=== PATIENT | female | born 1950 | race Caucasian/White ===

== ENCOUNTER 2020-06-29 04:13 | Emergency (ER) | payer MEDICARE, OTHER, SELFPAY ==
[2020-06-29 04:20] VITALS: BP 181/79; PULSE 61; RESP 22; TEMP 37.3; O2SAT 100; BMI 27.7
--- NOTE | 2020-06-29 04:28 | DI.CT.S_ITS ---
PROCEDURE: CT ABDOMEN PELVIS W CON INDICATIONS: severe abdominal pain, nausea, vomiting TECHNIQUE: After the administration of intravenous contrast, 5 mm thick sections acquired from the diaphragm to the symphysis. 5 mm coronal and sagittal reformats were acquired. For radiation dose reduction, the following was used: automated exposure control, adjustment of mA and/or kV according to patient size. COMPARISON: None. FINDINGS: Image quality: Excellent. ABDOMEN: Lung bases: Lung bases are clear. Heart size is normal. Solid organs: Liver is normal in size and enhancement. Gallbladder is surgically absent. Biliary system is mildly dilated. Pancreas enhances normally. Spleen is normal in size and enhancement. There is a 1.2 cm left adrenal nodule. Kidneys demonstrate normal size and enhancement, without hydronephrosis. Peritoneum and bowel: There is postsurgical changes with gastric bypass. Proximal small bowel loops are filled with fluid, but demonstrates normal caliber. There are colonic diverticula. No CT findings to suggest active diverticulitis. No free fluid or air. Nodes and vessels: No retroperitoneal or mesenteric adenopathy by size criteria. Aorta and inferior vena cava are normal in size. Miscellaneous: No ventral hernias. PELVIS: Genitourinary: Bladder wall thickness is normal. Miscellaneous: No inguinal hernias or adenopathy. Bones: No suspicious bony lesions. No vertebral body compression fractures. Degenerative and postsurgical changes in lumbar spine. There is posterior disc extrusion at L2-L3 causing moderate central canal stenosis. There is severe narrowing of the left lateral recess. IMPRESSION: 1. Proximal small bowel loops are filled with fluid, but demonstrates normal caliber. This finding is nonspecific and may be secondary to enteritis. 2. Gastric bypass. 3. Diverticulosis without acute diverticulitis. 4. Mild intrahepatic and extrahepatic biliary dilation. This finding may be secondary to cholecystectomy. Please correlate with serum bilirubin for biliary obstruction. 5. A 1.2 cm left adrenal nodule. Recommend adrenal protocol CT or MRI for follow-up evaluation. 6. Degenerative and postsurgical changes in lumbar spine. There is posterior disc extrusion at L2-L3 causing moderate central canal stenosis and severe narrowing of the left lateral recess. 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 Dictated by: Arturo Petit M.D. on 06/29/2020 at 7:54 Approved by: Arturo Petit M.D. on 06/29/2020 at 11:36
[2020-06-29] MEDS: HYDROMORPHONE 0.5 MG INJ IV (04:40)
[2020-06-29] MEDS: ONDANSETRON 4 MG/2 ML INJ IV (04:40)
[2020-06-29] MEDS: SODIUM CHLORIDE 0.9% 1,000 ML 1000 ML IV (04:40)
[2020-06-29 04:50] LABS: Add Manual Diff / Slide Review NO; Basophils Absolute Auto 0 /uL (0-100); Basophils Percent Auto 0.4 % (0-2); Eosinophils Absolute Auto 0 /uL (0-450); Eosinophils Percent Auto 0.1 % (2-4); Hematocrit 38.6 % (36-46); Hemoglobin 12.9 g/dL (12.0-16.0); Lymphocytes Absolute Auto 600 /uL (1100-4500); Lymphocytes Percent Auto 10.7 % (25-40); Mean Corpuscular HGB Conc 33.3 % (30-36); Mean Corpuscular Hemoglobin 27.4 PG (26-34); Mean Corpuscular Volume 82.3 fL (80-100); Monocytes Absolute Auto 100 /uL (0-900); Monocytes Percent Auto 1.8 % (3-14); Neutrophils Absolute Auto 4900 /uL (1500-7000); Platelet Count 267 X10^3/uL (150-400); Red Blood Cell Count 4.69 X10^6/uL (4.0-5.2); Red Cell Distribution Width 13.9 % (11.6-14.8); White Blood Cell Count 5.7 X10^3/uL (4.5-11.0)
[2020-06-29 04:58] LABS: Lactate (Lactic Acid) 1.1 mmol/L (0.7-2.1)
[2020-06-29 04:59] LABS: Alanine Aminotransferase 11 IU/L (<35); Albumin 4.3 g/dL (3.5-5.0); Albumin Globulin Ratio 1.2 (1.0-2.8); Alkaline Phosphatase 107 U/L (38-126); Aspartate Aminotransferase 20 IU/L (14-36); BUN Creatinine Ratio 20.5 (6-22); Bilirubin Total 0.8 mg/dL (0.2-1.3); Blood Urea Nitrogen 15 mg/dL (7-17); Calcium 9.3 mg/dL (8.4-10.2); Carbon Dioxide 23 mmol/L (22-32); Chloride 103 mmol/L (98-107); Estimated Glomerular Filt Rate > 60.0 mL/min (>60); Globulin 3.6 g/dL (1.7-4.1); Glucose 151 mg/dL (80-110); HEMOLYSIS < 15 (0-50); Potassium 3.7 mmol/L (3.4-5.1); Sodium 137 mmol/L (137-145); Total Protein 7.9 g/dL (6.3-8.2)
--- NOTE | 2020-06-29 06:08 | ED_ITS ---
HPI - Nausea/Vomiting/Diarrhea General Chief complaint: Nausea/Vomiting/Diarrhea Stated complaint: vomiting since yesterday Time Seen by Provider: 06/29/20 04:27 Source: patient and family Mode of arrival: Family Vehicle Limitations: no limitations History of Present Illness HPI Narrative: 69F nonsmoker presents with with the chief complaint of severe abdominal pain with a tremendous number of episodes of N/V over the day. She's had no fever. She states her pain is worse with motion and improves with rest. It is persistent. She denies any history of the same. She denies any fever or chills. She denies eating any obvious bad food. She denies any recent antibiotic use. She did have a bowel movement earlier without significant difficulty. She had a gastric bypass many years ago and has also had her gallb ladder out and a hysterectomy. MD complaint: nausea, vomiting and abdominal pain Onset (ago): hour(s) Description of Vomiting: food contents and bilious Description of Diarrhea: none Associated Abdominal Pain: Yes Location of pain: diffuse Severity: moderate Relieving factors: none Exacerbating factors: none Related Data Previous Rx's Medication Instructions Recorded hydrocodone-acetaminophen 1 tab PO Q4-6H PRN #10 tab 06/29/20 hyoscyamine sulfate 0.125 mg PO BID-QID PRN #20 tab 06/29/20 ondansetron 4 mg PO TID-QID PRN #10 tab 06/29/20 Allergies Allergy/AdvReac Type Severity Reaction Status Date / Time Penicillins Allergy Hives Verified 06/29/20 04:43 Review of Systems Constitutional Constitutional: Denies chills, Denies fatigue, Denies fever(s), Denies frequent falls, Denies lethargy and Denies weakness Eyes Eyes: Denies change in vision, Denies eye discharge, Denies irritation and Denies loss of vision ENT Ears, Nose, Mouth, and Throat: Denies change in voice, Denies dizziness, Denies neck pain, Denies sore throat and Denies throat swelling Cardiovascular Cardiovascular: Denies chest pain, Denies irregular heart rhythm, Denies lightheadedness, Denies palpitations, Denies dyspnea, Denies dyspnea on exertion and Denies orthopnea Respiratory Respiratory: Denies cough, Denies dyspnea, Denies dyspnea on exertion and Denies wheezing Gastrointestinal Gastrointestinal: Reports abdominal pain, Denies change in bowel habits, Denies diarrhea, Reports nausea and Reports vomiting Musculoskeletal Musculoskeletal: Denies neck pain and Denies numbness Integumentary/Breasts Skin/Breast: Denies pruritus, Denies erythema, Denies rash and Denies wounds Neurologic Neurologic: Denies behavioral changes, Denies confusion, Denies dizziness, Denies frequent falls, Denies loss of vision, Denies numbness and Denies weakness Psychiatric Psychiatric: Denies anxiety, Denies behavioral changes, Denies confusion, Denies depression, Denies homicidal ideation and Denies suicidal ideation Endocrine Endocrine: Denies fatigue, Denies flushing and Denies palpitations Hematologic/Lymphatic Hematologic/Lymphatic: Denies easy bruising Allergic/Immunologic Allergic/Immunologic: Denies urticaria, Denies throat swelling and Denies wheezing Patient History Social History Smoking Status: Never smoker Smoking Status: Never smoker Substance Use Type: does not use Exam Narrative Exam Narrative: GENERAL: [69] year old patient appears stated age. Well-nourish ed, well-developed patient, in mild distress. HEAD: Atraumatic. Normocephalic. EYES: Pupils equal round and reactive. Extraocular motions intact. No scleral icterus. No injection or drainage. ENT: Nose without bleeding, purulent drainage. Throat without erythema, tonsillar hypertrophy or exudate. Airway patent. NECK: Trachea midline. Non tender CARDIOVASCULAR: Regular rate and rhythm without murmurs, gallops, or rubs. RESPIRATORY: Clear to auscultation. Breath sounds equal bilaterally. No wheezes, rales, or rhonchi. GASTROINTESTINAL: Abdomen soft, generalized tenderness, nondistended. Bowel sounds in all quadrants EXTREMITIES: No edema or joint tenderness. BACK: Nontender without deformity or crepitance. No flank tenderness. NEURO: AOx3. SKIN: No rash or erythema of visible areas Initial Vital Signs Initial Vital Signs: Vital Signs Temperature 99.1 F 06/29/20 04:20 Pulse Rate 61 06/29/20 04:20 Respiratory Rate 22 06/29/20 04:20 Blood Pressure 181/79 H 06/29/20 04:20 Pulse Oximetry 100 06/29/20 04:20 Course Orders Ordered: ED Orders 06/29/20 04:28 CT abdomen pelvis w con Stat 06/29/20 04:30 Complete Blood Count AUTO DIFF Stat Comprehensive Metabolic Panel Stat Lactate (Lactic Acid) Stat Ondansetron HCl (Zofran) 4 mg IV Q4HR PRN PRN Reason: Nausea And Vomiting Last Admin: 06/29/20 04:40 Dose: 4 mg Documented by: JAJA Discontinued Medications Hydrocodone Bitart/Acetaminophen (Vicodin 5/325 Prepack) 1 bottle MISC SEEINSTR ONE Stop: 06/29/20 06:20 Last Admin: 06/29/20 06:48 Dose: 1 bottle Documented by: JAJA Hydromorphone HCl (Dilaudid) 0.5 mg IV NOW ONE Stop: 06/29/20 04:29 Last Admin: 06/29/20 04:40 Dose: 0.5 mg Documented by: JAJA Sodium Chloride (Normal Saline 0.9%) 1,000 mls @ 1,000 mls/hr IV BOLUS ONE Stop: 06/29/20 05:27 Last Infusion: 06/29/20 06:04 Dose: 0 mls/hr Documented by: Admin: 06/29/20 04:40 Dose: 1,000 mls/hr Documented by: JAJA Metoclopramide HCl (Reglan) 10 mg IV NOW ONE Stop: 06/29/20 06:03 Last Admin: 06/29/20 06:12 Dose: 10 mg Documented by: JAJA Ondansetron HCl (Zofran Odt Prepack) 1 bottle MISC SEEINSTR ONE Stop: 06/29/20 06:20 Last Admin: 06/29/20 06:48 Dose: 1 bottle Documented by: JAJA Vital Signs Vital signs: Vital Signs - 8 hr 06/29/20 04:20 Temperature 99.1 F Pulse Rate 61 Respiratory Rate 22 Blood Pressure 181/79 H Pulse Oximetry 100 MDM - Nausea/Vomiting/Diarrhea Lab Data Result diagrams: 06/29/20 04:30 06/29/20 04:30 Labs: Lab Results 06/29/20 06/29/20 06/29/20 Range/Units 04:30 04:30 04:30 WBC 5.7 (4.5-11.0) X10^3/uL RBC 4.69 (4.0-5.2) X10^6/uL Hgb 12.9 (12.0-16.0) g/dL Hct 38.6 (36-46) % MCV 82.3 (80-100) fL MCH 27.4 (26-34) PG MCHC 33.3 (30-36) % RDW 13.9 (11.6-14.8) % Plt Count 267 (150-400) X10^3/uL Neut % (Auto) 87.0 H (50-75) % Lymph % (Auto) 10.7 L (25-40) % Bleckley % (Auto) 1.8 L (3-14) % Eos % (Auto) 0.1 L (2-4) % Baso % (Auto) 0.4 (0-2) % Neut # (Auto) 4900 (1795-4332) /uL Lymph # (Auto) 600 L (0118-4323) /uL [place]ck[place] # (Auto) 100 (0-900) /uL Eos # (Auto) 0 (0-450) /uL Baso # (Auto) 0 (0-100) /uL Sodium 137 (137-145) mmol/L Potassium 3.7 (3.4-5.1) mmol/L Chloride 103 (98-107) mmol/L Carbon Dioxide 23 (22-32) mmol/L BUN 15 (7-17) mg/dL Creatinine 0.73 (0.52-1.04) mg/dL Estimated GFR > 60.0 (>60) mL/min BUN/Creatinine Ratio 20.5 (6-22) Glucose 151 H (80-110) mg/dL Lactate 1.1 (0.7-2.1) mmol/L Calcium 9.3 (8.4-10.2) mg/dL Total Bilirubin 0.8 (0.2-1.3) mg/dL AST 20 (14-36) IU/L ALT 11 (<35) IU/L Alkaline Phosphatase 107 (38-126) U/L Total Protein 7.9 (6.3-8.2) g/dL Albumin 4.3 (3.5-5.0) g/dL Globulin 3.6 (1.7-4.1) g/dL Albumin/Globulin Ratio 1.2 (1.0-2.8) Imaging Data CT scan - abdomen/pelvis: Radiologist's Impression: No complications with gastric bypass Possible enteritis Discharge Plan Departure Patient Disposition: Home Clinical Impression: Enteritis Instructions: DI for Enteritis Activity Restrictions/Additional Instructions: 1. Drink plenty of fluids with frequent small sips. 2. For the next 24 hours a clear liquid diet is advised. After that please employ a brat diet which would include bananas, rice, apples, toast. 3. Please take medications as directed. 4. Please follow-up with your doctor in the next 1-2 days. Call the office for an appointment. 5. Please return to the emergency Department for any worsening or persistent symptoms, such as increasing pain or fever. Prescriptions: New hydrocodone-acetaminophen 5-325 mg tablet 1 tab PO Q4-6H PRN (Reason: pain) Qty: 10 RF: 0 hyoscyamine sulfate 0.125 mg tablet 0.125 mg PO BID-QID PRN (Reason: dyspepsia) Qty: 20 RF: 0 ondansetron 4 mg tablet,disintegrating 4 mg PO TID-QID PRN (Reason: nausea and vomiting) Qty: 10 RF: 0
[2020-06-29] MEDS: METOCLOPRAMIDE 10 MG/2 ML INJ IV (06:12)
[2020-06-29] MEDS: ONDANSETRON 4 MG ODT PREPACK 1 BOTTLE MISC (06:48)
[2020-06-29] MEDS: HYDROCODONE/ACET 5/325 PREPACK 1 BOTTLE MISC (06:48)
[2020-06-29 06:54] VITALS: BP 141/65; PULSE 55; RESP 16; O2SAT 94
== END 2020-06-29 06:54 | disposition home or self-care (01) ==
PROVIDERS: Emergency Provider Emergency Medicine
DX: K52.9 Noninfective gastroenteritis and colitis, unspecified (principal); R11.2 Nausea with vomiting, unspecified
CPT/HCPCS: 36415; 74177; 80053; 83605; 85025; 96361; 96374; 96375; 99284; J1170; J2405; J2765; Q9967

== ENCOUNTER 2021-03-07 11:08 | Emergency (ER) | payer MEDICARE, OTHER, SELFPAY ==
[2021-03-07] VITALS (14 sets, daily range): BP systolic 150–177; BP diastolic 69–81; PULSE 71–105; RESP 16–30; TEMP 37.1; O2SAT 86–100; BMI 24.2
--- NOTE | 2021-03-07 11:22 | DI.RAD.S_ITS ---
PROCEDURE: XR CHEST 1V INDICATIONS: chest pain TECHNIQUE: One view of the chest was acquired. COMPARISON: None. FINDINGS: Surgical changes and devices: None. Lungs and pleura: Lungs are clear. No pleural effusions or pneumothorax. Mediastinum: Mediastinal contours appear normal. Heart size is normal. Bones and chest wall: No suspicious bony lesions. Overlying soft tissues appear unremarkable. IMPRESSION: No acute cardiopulmonary disease process. Dictated by: Ernestine Roberts MD, PhD on 03/07/2021 at 11:35 Approved by: Ernestine Roberts MD, PhD on 03/07/2021 at 11:36
[2021-03-07 11:28] LABS: Add Manual Diff / Slide Review NO; Basophils Absolute Auto 0 /uL (0-100); Basophils Percent Auto 0.8 % (0-2); Eosinophils Absolute Auto 200 /uL (0-450); Eosinophils Percent Auto 3.8 % (2-4); Hematocrit 36.5 % (36-46); Hemoglobin 12.2 g/dL (12.0-16.0); Lymphocytes Absolute Auto 1400 /uL (1100-4500); Lymphocytes Percent Auto 25.5 % (25-40); Mean Corpuscular HGB Conc 33.4 % (30-36); Mean Corpuscular Hemoglobin 28.3 PG (26-34); Mean Corpuscular Volume 84.6 fL (80-100); Monocytes Absolute Auto 300 /uL (0-900); Monocytes Percent Auto 6.2 % (3-14); Neutrophils Absolute Auto 3600 /uL (1500-7000); Neutrophils Percent Auto 63.7 % (50-75); Platelet Count 234 X10^3/uL (150-400); Red Blood Cell Count 4.32 X10^6/uL (4.0-5.2); Red Cell Distribution Width 13.2 % (11.6-14.8); White Blood Cell Count 5.6 X10^3/uL (4.5-11.0)
[2021-03-07 11:34] LABS: Prothrombin Time 10.9 SECONDS (10.1-12.7)
[2021-03-07 11:37] LABS: PTT Partial Thromboplastin Tim 42 SECONDS (26.4-36.2)
[2021-03-07 11:39] LABS: Alanine Aminotransferase 13 IU/L (<35); Albumin 4.4 g/dL (3.5-5.0); Albumin Globulin Ratio 1.3 (1.0-2.8); Alkaline Phosphatase 118 U/L (38-126); Aspartate Aminotransferase 25 IU/L (14-36); BUN Creatinine Ratio 15.3 (6-22); Bilirubin Total 0.6 mg/dL (0.2-1.3); Blood Urea Nitrogen 13 mg/dL (7-17); Calcium 9.3 mg/dL (8.4-10.2); Carbon Dioxide 23 mmol/L (22-32); Chloride 106 mmol/L (98-107); Creatine Kinase 52 U/L (30-135); Estimated Glomerular Filt Rate > 60.0 mL/min (>60); Globulin 3.4 g/dL (1.7-4.1); Glucose 119 mg/dL (80-110); HEMOLYSIS < 15 (0-50); Lipase 42 U/L (23-300); Potassium 3.1 mmol/L (3.4-5.1); Sodium 139 mmol/L (137-145); Total Protein 7.8 g/dL (6.3-8.2)
[2021-03-07 11:51] LABS: Troponin I < 0.012 ng/mL (0.01-0.034)
--- NOTE | 2021-03-07 13:54 | ED.CHESTPAIN ---
HPI - Chest Pain General Chief Complaint: Chest Pain Stated Complaint: chest pain Time Seen by Provider: 03/07/21 13:54 Source: patient Mode of arrival: Ambulatory Limitations: no limitations History of Present Illness HPI narrative: This is a 70-year-old female comes emergency department with complaint of chest pain and fast heartbeat. Patient states she develops chest pain when she is stressed and she begins having a fast heartbeat. She describes it is typically 75-80 beats per minute but sometimes up to 115. She states her normal heart rates in the 60s. She noticed issues after she had COVID 8 months ago. She states she was not hospitalized at that time. She and her physician were planning to have her follow up with Cardiology and to have what sounds like either a Holter monitor or ZIO patch. Patient states that she has been having symptoms on off for the past 6 months she states her blood pressure is often elevated at x2. She states that she came is a in today because she had several days of left-sided chest pressure with no resolution. It has never resolved. She has felt a little lightheaded, she had a mild headache. She denies any diaphoresis. She feels a little short of breath with her heart rate is fast. She has had some mild swelling in her lower extremities, she states that her right lower extremity has been chronically swollen for many years. She has also had some urinary symptoms with frequency and dysuria. She denies any GI symptoms. She takes benazepril, Norvasc, clonidine, naproxen daily, Suboxone daily. She does not take her aspirin daily and no longer takes her atorvastatin. She has a history spinal fusion. And her primary care is Dr. Romeo. Related Data Home Medications Medication Instructions Recorded Confirmed amlodipine 03/07/21 amlodipine [Norvasc] 03/07/21 clonidine 03/07/21 Previous Rx's Medication Instructions Recorded furosemide [Lasix] 20 mg PO DAILY #5 tab 03/07/21 nitrofurantoin macrocrystal 100 mg PO BID #14 cap 03/07/21 [Macrodantin] Allergies Allergy/AdvReac Type Severity Reaction Status Date / Time Penicillins Allergy Hives Verified 06/29/20 04:43 Review of Systems Review of Systems ROS Unobtainable: All systems reviewed & are unremarkable except as noted in HPI and below Patient History Social History Smoking Status: Never smoker Smoking Status: Never smoker Substance Use Type: does not use Exam Narrative Exam Narrative: GENERAL: Alert and oriented x three, well-nourished female in mild distress. HEENT: Head normocephalic, atraumatic, EOMI, pupils reactive, face symmetric, moist mucous membranes NECK: Supple, full range of motion CARDIOVASCULAR: Regular rate and rhythm without murmurs, rubs or gallops. No reproducible chest pain. No JVD. RESPIRATORY: Breath sounds equal bilaterally, no wheezes rales or rhonchi. ABDOMEN: Soft, nontender. Normoactive bowel sounds all 4 quadrants. No guarding or rebound, rigidity, no mass : No CVA tenderness EXTREMITIES: Normal range of motion, no clubbing or edema appreciated.. Neurovascularly intact NEUROLOGICAL: Cranial nerves II through XII grossly intact. Moving all extremities SKIN: Warm, dry, no petechiae, no rashes or lesions. Initial Vital Signs Initial Vital Signs: Vital Signs Temperature 98.8 F 03/07/21 11:21 Pulse Rate 105 H 03/07/21 11:21 Respiratory Rate 16 03/07/21 11:21 Blood Pressure 177/80 H 03/07/21 11:21 Pulse Oximetry 100 03/07/21 11:21 Scores HEART Score Heart Score history: Slightly Suspicious Heart Score EKG: Normal Heart Score Age: > or = 65 years old Heart Score risk factors: 1-2 risk factors Heart Score troponin: < or = to normal limit Heart Score Total: 3 Course Orders Ordered: ED Orders 03/07/21 11:20 Complete Blood Count AUTO DIFF Stat Comprehensive Metabolic Panel Stat Lipase Stat Partial Thromboplastin Time Stat Prothrombin Time INR Stat Troponin & CK Cardiac Panel Stat 03/07/21 11:22 XR chest 1V Stat EKG-12 Lead Stat 03/07/21 13:29 D Dimer Stat 03/07/21 14:00 NT-proBNP (BNP-Adult 18+) Stat Troponin I Stat 03/07/21 14:59 CT angio chest PE protocol Stat Discontinued Medications Nitrofurantoin Macrocrystals (Nitrofurantoin Er 100 Mg Capsule) 100 mg PO NOW ONE Stop: 03/07/21 14:15 Last Admin: 03/07/21 14:20 Dose: 100 mg Documented by: ARIELLE Potassium Chloride (Potassium Chloride 20 Meq/15 Ml Udc) 40 meq PO NOW ONE Stop: 03/07/21 14:15 Last Admin: 03/07/21 14:20 Dose: 40 meq Documented by: ARIELLE Reevaluation(s) Reevaluation #1: UPdated patient on findings today. Recommend short course of diuretic. CT of chest was negative for PE. Patient recommended follow-up with her primary care for recheck, was given referral for Cardiology and Holter/ZIO patch which she and her physician have discussed setting up. Time: 15:51 Vital Signs Vital signs: Vital Signs - 8 hr 03/07/21 11:21 03/07/21 12:38 03/07/21 13:00 Temperature 98.8 F Pulse Rate 105 H 78 78 Respiratory Rate 16 22 Blood Pressure 177/80 H 172/75 H 157/72 H Pulse Oximetry 100 99 99 03/07/21 13:30 03/07/21 13:45 03/07/21 14:00 Temperature Pulse Rate 71 79 74 Respiratory Rate 19 18 21 Blood Pressure 151/70 H 164/81 H 155/76 H Pulse Oximetry 98 99 98 03/07/21 14:30 03/07/21 14:31 03/07/21 15:00 Temperature Pulse Rate 81 76 73 Respiratory Rate 21 30 H Blood Pressure 168/74 H 150/75 H Pulse Oximetry 97 98 98 03/07/21 15:30 03/07/21 15:31 03/07/21 15:32 Temperature Pulse Rate 74 74 74 Respiratory Rate Blood Pressure 174/72 H 165/72 H Pulse Oximetry 98 99 99 03/07/21 16:08 03/07/21 16:09 Temperature Pulse Rate 76 Respiratory Rate 16 Blood Pressure 156/69 H Pulse Oximetry 86 L 98 MDM - Chest Pain Lab Data Attestation: I reviewed the patient's lab results. Result diagrams: 03/07/21 11:20 03/07/21 11:20 Labs: Lab Results 03/07/21 03/07/21 03/07/21 Range/Units 11:20 11:20 11:20 WBC 5.6 (4.5-11.0) X10^3/uL RBC 4.32 (4.0-5.2) X10^6/uL Hgb 12.2 (12.0-16.0) g/dL Hct 36.5 (36-46) % MCV 84.6 (80-100) fL MCH 28.3 (26-34) PG MCHC 33.4 (30-36) % RDW 13.2 (11.6-14.8) % Plt Count 234 (150-400) X10^3/uL Neut % (Auto) 63.7 (50-75) % Lymph % (Auto) 25.5 (25-40) % [place] % (Auto) 6.2 (3-14) % Eos % (Auto) 3.8 (2-4) % Baso % (Auto) 0.8 (0-2) % Neut # (Auto) 3600 (4109-2063) /uL Lymph # (Auto) 1400 (9480-0209) /uL [place] # (Auto) 300 (0-900) /uL Eos # (Auto) 200 (0-450) /uL Baso # (Auto) 0 (0-100) /uL PT 10.9 (10.1-12.7) SECONDS INR 1.0 (0.9-1.3) APTT 42 H (26.4-36.2) SECONDS D-Dimer (<230) ng/mL Sodium 139 (137-145) mmol/L Potassium 3.1 L (3.4-5.1) mmol/L Chloride 106 (98-107) mmol/L Carbon Dioxide 23 (22-32) mmol/L BUN 13 (7-17) mg/dL Creatinine 0.85 (0.52-1.04) mg/dL Estimated GFR > 60.0 (>60) mL/min BUN/Creatinine Ratio 15.3 (6-22) Glucose 119 H (80-110) mg/dL Calcium 9.3 (8.4-10.2) mg/dL Total Bilirubin 0.6 (0.2-1.3) mg/dL AST 25 (14-36) IU/L ALT 13 (<35) IU/L Alkaline Phosphatase 118 (38-126) U/L Total Creatine Kinase 52 (30-135) U/L CK-MB (CK-2) TNP CK-MB (CK-2) Rel Index TNP Troponin I < 0.012 (0.01-0.034) ng/mL NT-Pro-B Natriuret Pep (<125) pg/mL Total Protein 7.8 (6.3-8.2) g/dL Albumin 4.4 (3.5-5.0) g/dL Globulin 3.4 (1.7-4.1) g/dL Albumin/Globulin Ratio 1.3 (1.0-2.8) Lipase 42 (23-300) U/L 03/07/21 03/07/21 03/07/21 Range/Units 13:29 14:00 14:00 WBC (4.5-11.0) X10^3/uL RBC (4.0-5.2) X10^6/uL Hgb (12.0-16.0) g/dL Hct (36-46) % MCV (80-100) fL MCH (26-34) PG MCHC (30-36) % RDW (11.6-14.8) % Plt Count (150-400) X10^3/uL Neut % (Auto) (50-75) % Lymph % (Auto) (25-40) % [place] % (Auto) (3-14) % Eos % (Auto) (2-4) % Baso % (Auto) (0-2) % Neut # (Auto) (8000-6095) /uL Lymph # (Auto) (3011-8705) /uL [place] # (Auto) (0-900) /uL Eos # (Auto) (0-450) /uL Baso # (Auto) (0-100) /uL PT (10.1-12.7) SECONDS INR (0.9-1.3) APTT (26.4-36.2) SECONDS D-Dimer 395 H (<230) ng/mL Sodium (137-145) mmol/L Potassium (3.4-5.1) mmol/L Chloride (98-107) mmol/L Carbon Dioxide (22-32) mmol/L BUN (7-17) mg/dL Creatinine (0.52-1.04) mg/dL Estimated GFR (>60) mL/min BUN/Creatinine Ratio (6-22) Glucose (80-110) mg/dL Calcium (8.4-10.2) mg/dL Total Bilirubin (0.2-1.3) mg/dL AST (14-36) IU/L ALT (<35) IU/L Alkaline Phosphatase (38-126) U/L Total Creatine Kinase (30-135) U/L CK-MB (CK-2) CK-MB (CK-2) Rel Index Troponin I < 0.012 (0.01-0.034) ng/mL NT-Pro-B Natriuret Pep 420 H (<125) pg/mL Total Protein (6.3-8.2) g/dL Albumin (3.5-5.0) g/dL Globulin (1.7-4.1) g/dL Albumin/Globulin Ratio (1.0-2.8) Lipase (23-300) U/L Urine Dip Bedside Urine Glucose Negative Bedside Urine Bilirubin - Negative Bedside Urine Ketone - Negative Urine Specific [place] 1.010 Bedside Urine Occult Blood - Negative Bedside Urine pH 6.5 Bedside Urine Protein - Negative Bedside Urine Urobilinogen - Negative Bedside Urine Nitrite + Positive Bedside Urine Leukocytes ++ 125 Esterase Imaging Data Chest x-ray: Radiologist's Impression: [address] [id number] ReportSigned Patient: Laura HorneR#: [id number]: [id number]:[id number]/Sex: 70 / FDate of Service: 03/07/21Loc: EDAccession Number: [id number] Procedure: XR chest 1V Ordering Provider: Caitlyn Worrell D.O. PROCEDURE: XR CHEST 1V INDICATIONS: chest pain TECHNIQUE: One view of the chest was acquired. COMPARISON: None. FINDINGS: Surgical changes and devices: None. Lungs and pleura: Lungs are clear. No pleural effusions or pneumothorax. Mediastinum: Mediastinal contours appear normal. Heart size is normal. Bones and chest wall: No suspicious bony lesions. Overlying soft tissues appear unremarkable. IMPRESSION: No acute cardiopulmonary disease process. Dictated by: Ernestine Roberts MD, PhD on 03/07/2021 at 11:35 Approved by: Ernestine Roberts MD, PhD on 03/07/2021 at 11:36 CT scan - chest: Radiologist's Impression: [address] [id number] Scan ReportSigned Patient: Laura HorneR#: [id number]: [id number]:[id number]/Sex: 70 / FDate of Service: 03/07/21Loc: EDAccession Number: [id number] Procedure: CT angio chest PE protocol Ordering Provider: Caitlyn Worrell D.O. PROCEDURE: CT ANGIO CHEST PE PROTOCOL INDICATIONS: chest pain, sob, hx of covid 8 months ago. TECHNIQUE: After the administration of intravenous contrast, 2 mm thick sections acquired from the pulmonary apices to the posterior costophrenic angles. 3-dimensional maximum intensity projection (MIP) coronal and sagittal reformats were then acquired through the thorax. For radiation dose reduction, the following was used: automated exposure control, adjustment of mA and/or kV according to patient size. COMPARISON: None. FINDINGS: Cardiovascular: Heart size is normal. No evidence of pulmonary embolism, aortic aneurysm or dissection. Incidental note is made the left vertebral artery arising directly from the aortic arch. Atherosclerotic vascular calcification noted in the aortic arch. Lungs and Pleura: The lung jones are clear without nodule, infiltrate or interstitial prominence. Pleural spaces show no effusion or pneumothorax. Mediastinum: Incidental small 4 mm right thyroid hypodensity noted. No follow-up required. No hiatal hernia. Lymph nodes: No mediastinal, hilar or axillary adenopathy. Bones and Chest Wall: Unremarkable. No acute fracture. Upper Abdomen: Minimal splenomegaly, 13.6 cm. Prior gastric surgery noted. IMPRESSION: No evidence of pulmonary embolism, aortic dissection or aneurysm. Lungs and pleural spaces clear. Mild atherosclerotic vascular calcification Mild splenomegaly, 13.6 cm Dictated by: Lino Johnson M.D. on 03/07/2021 at 15:24 Approved by: Lino Johnson M.D. on 03/07/2021 at 15:36 ECG Data Attestation: I personally reviewed and interpreted this ECG as follows: Prior ECG tracings: not available for review Interpretation: Sinus tach rate of 103 TX 178 QRS 88 QTC [address] changes appreciated. No prior available for review. Discharge Plan Departure Patient Disposition: Home Clinical Impression: Chest pain Instructions: DI for Chest Pain Activity Restrictions/Additional Instructions: Follow up with your physician in the next week for recheck. I agree that I think it is appropriate for you to have referral for Cardiology, and Holter monitor or ZIO patch. Your CT imaging today shows a small hypodensity on your thyroid which does not require any specific follow up at this time and an enlarged spleen. Share this information with your primary care physician. Follow up with your physician to have your potassium rechecked in the next week. Continue your home medications. Take lasix one tablet daily until gone. Prescription sent to [facility] in [place]. Please return for fevers greater 100.4 F, new chest pain, shortness of breath, lightheadedness or passing out, persistent vomiting, new swelling in her extremities, black or bloody stools or other new or concerning symptoms. Prescriptions: New furosemide [Lasix] 20 mg tablet 20 mg PO DAILY Qty: 5 RF: 0 nitrofurantoin macrocrystal [Macrodantin] 100 mg capsule 100 mg PO BID Qty: 14 RF: 0 No Action amlodipine 5 mg tablet RF: 0 amlodipine [Norvasc] 10 mg Tablet RF: 0 clonidine 0.3 mg/24 hr Patch Weekly RF: 0 Referrals: Bernardo Romeo MD [Physician] - Miscellaneous,MD Josué [Primary Care Provider] - Milo Ovalle MD [Physician] -
[2021-03-07] MEDS: POTASSIUM CHLORIDE 20 MEQ/15 ML UDC 40 MEQ PO (14:20)
[2021-03-07] MEDS: NITROFURANTOIN ER 100 MG CAPSULE PO (14:20)
[2021-03-07 14:29] LABS: D Dimer 395 ng/mL (<230)
[2021-03-07 14:43] LABS: NT-proBNP (BNP-Adult 18+) 420 pg/mL (<125)
[2021-03-07 14:46] LABS: Troponin I < 0.012 ng/mL (0.01-0.034)
--- NOTE | 2021-03-07 14:59 | DI.CT.S_ITS ---
PROCEDURE: CT ANGIO CHEST PE PROTOCOL INDICATIONS: chest pain, sob, hx of covid 8 months ago. TECHNIQUE: After the administration of intravenous contrast, 2 mm thick sections acquired from the pulmonary apices to the posterior costophrenic angles. 3-dimensional maximum intensity projection (MIP) coronal and sagittal reformats were then acquired through the thorax. For radiation dose reduction, the following was used: automated exposure control, adjustment of mA and/or kV according to patient size. COMPARISON: None. FINDINGS: Cardiovascular: Heart size is normal. No evidence of pulmonary embolism, aortic aneurysm or dissection. Incidental note is made the left vertebral artery arising directly from the aortic arch. Atherosclerotic vascular calcification noted in the aortic arch. Lungs and Pleura: The lung jones are clear without nodule, infiltrate or interstitial prominence. Pleural spaces show no effusion or pneumothorax. Mediastinum: Incidental small 4 mm right thyroid hypodensity noted. No follow-up required. No hiatal hernia. Lymph nodes: No mediastinal, hilar or axillary adenopathy. Bones and Chest Wall: Unremarkable. No acute fracture. Upper Abdomen: Minimal splenomegaly, 13.6 cm. Prior gastric surgery noted. IMPRESSION: No evidence of pulmonary embolism, aortic dissection or aneurysm. Lungs and pleural spaces clear. Mild atherosclerotic vascular calcification Mild splenomegaly, 13.6 cm Dictated by: Lino Johnson M.D. on 03/07/2021 at 15:24 Approved by: Lino Johnson M.D. on 03/07/2021 at 15:36
== END 2021-03-07 16:18 | disposition home or self-care (01) ==
PROVIDERS: Emergency Provider Emergency Medicine
DX: R07.9 Chest pain, unspecified (principal); Z86.16 Personal history of COVID-19
CPT/HCPCS: 36415; 71045; 71275; 80053; 81003; 82550; 83690; 83880; 84484; 85025; 85379; 85610; 85730; 93005; 93010; 99284; Q9967

== ENCOUNTER → 2021-03-21 11:36 | Outpatient (CLI) | payer MEDICARE, OTHER, SELFPAY ==
--- NOTE | 2021-04-17 09:31 | PM.CARDMON.1 ---
[employer] Report Referral & Results Date Patient Seen: 03/21/21 Requesting provider: Bernardo Romeo Indication: Palpitations Duration of monitoring (days): 7 Diary information: There was 1 patient triggered event and 1 patient diary entry Patient triggered event was associated with sinus rhythm only Patient diary event was associated with (within 45 seconds) sinus rhythm and PVCs Data: Minimum heart rate identified was 54 beats per minute at 09:33 on 03/28/2021 Maximum sinus heart rate was 121 beats per minute at 19:40 on 03/28/2021 Maximum overall heart rate was 182 beats per minute at 13:24 on 03/22/2021 during a 12 beat run of SVT There 7 runs of SVT the the fastest being the 12 beat run above which was also the longest. Some of these episodes may have been actual atrial tachycardia rather than true SVT Ventricular trigeminy was identified longest episode lasting 8.9 seconds Less than 1% of identified beats were ventricular or supraventricular ectopic in origin, which would classify them as rare. Impression: No serious dysrhythmias identified on this study Very rare very brief runs of SVT were identified. No clear correlation of patient reported symptoms of palpitations with any significant or single dysrhythmia Clinical correlation suggested
== END ==
PROVIDERS: PCP Student in an Organized Health Care Education/Training Program; Referring Provider Student in an Organized Health Care Education/Training Program; Visit Provider Student in an Organized Health Care Education/Training Program
DX: R00.2 Palpitations (principal)
CPT/HCPCS: 93242; 93244

== ENCOUNTER → 2021-05-11 10:29 | Outpatient (CLI) | payer MEDICARE, OTHER, SELFPAY ==
--- NOTE | 2021-05-11 | DI.MG.S_ITS ---
BILATERAL DIGITAL SCREENING MAMMOGRAM 3D/2D WITH CAD: 05/11/2021 CLINICAL: Routine screening. Comparison is made to exams dated: 01/24/2016 mammogram and 02/08/2018 mammogram - outside facility. The tissue of both breasts is predominantly fatty. Current study was also evaluated with a Computer Aided Detection (CAD) system. No significant masses, calcifications, or other findings are seen in either breast. There has been no significant interval change. IMPRESSION: NEGATIVE There is no mammographic evidence of malignancy. A 1 year screening mammogram is recommended. This exam was interpreted at Station ID: [id number]. NOTE: For mammograms, a report in lay terms will be sent to the patient. Approximately 15% of breast malignancies will not be visualized mammographically. In the management of a palpable breast mass, a negative mammogram must not discourage biopsy of a clinically suspicious lesion. Electronically Signed By: Clifton brown/barbara:05/13/2021 08:19:42 letter sent: Normal Exam ACR BI-RADS Category 1: Negative [id number]
== END ==
PROVIDERS: PCP Student in an Organized Health Care Education/Training Program; Referring Provider Student in an Organized Health Care Education/Training Program; Visit Provider Student in an Organized Health Care Education/Training Program
DX: Z12.31 Encounter for screening mammogram for malignant neoplasm of breast (principal)
CPT/HCPCS: 77063; 77067

== ENCOUNTER → 2021-05-15 12:28 | Outpatient (CLI) | payer MEDICARE, OTHER, SELFPAY | PROVIDERS: PCP Student in an Organized Health Care Education/Training Program; Referring Provider Student in an Organized Health Care Education/Training Program; Visit Provider Student in an Organized Health Care Education/Training Program | DX: M85.832 Other specified disorders of bone density and structure, left forearm (principal); Z78.0 Asymptomatic menopausal state; M19.90 Unspecified osteoarthritis, unspecified site | CPT/HCPCS: 77080 ==

== ENCOUNTER 2021-06-27 02:43 | Emergency (ER) | payer MEDICARE, MEDICAID, SELFPAY ==
[2021-06-27] VITALS (10 sets, daily range): BP systolic 136–190; BP diastolic 65–94; PULSE 60–79; RESP 12–49; TEMP 36.1; O2SAT 97–100; BMI 23.3
--- NOTE | 2021-06-27 02:46 | DI.CT.S_ITS ---
PROCEDURE: CT ABDOMEN PELVIS W CON INDICATIONS: severe abdominal pain, nausea and vomiting TECHNIQUE: After the administration of intravenous contrast, axial sections acquired from the lung bases to the pubic symphysis. Coronal and sagittal reformats were performed. For radiation dose reduction, the following was used: automated exposure control, adjustment of mA and/or kV according to patient size. COMPARISON: Merged With [facility], CT, CT ABDOMEN PELVIS W CON, 06/29/2020, 4:55. FINDINGS: Lower thorax: The lung bases are clear. Heart size normal. No hiatal hernia. Liver: Normal in size and attenuation. No contour deformity present. Biliary system: Cholecystectomy. Prominent intra and extrahepatic bile ducts. Common bile duct measures up to 1 cm. No intra or extrahepatic bile duct dilatation. Pancreas: Unremarkable without mass or inflammation evident. Spleen: Normal in size and density. Adrenals: Homogeneous 1.6 x 1.3 cm left adrenal nodule is stable from the prior measures 74 Hounsfield units Reproductive system: Hysterectomy Urinary system: Normal renal size and attenuation. Subcentimeter hepatic hypodensities probably reflects cyst. No renal calculi, hydronephrosis, or solid mass present. Urinary bladder unremarkable. Gastrointestinal system: Prior gastric surgery present. Moderate fecal debris in the colon. The stomach appears unremarkable. Multiple diverticula arise from the sigmoid colon without evidence of diverticulitis. Appendix: Normal appendix identified. No evidence of appendicitis. Peritoneal spaces: No mesenteric or retroperitoneal adenopathy. No free air. No free fluid. Vasculature: The IVC, aorta and iliac vasculature are unremarkable. Musculoskeletal: Normal bone mineralization. Degenerative disc disease and arthropathy noted in lower lumbar spine. L4-5 interbody fusion with posterior abraham and screw instrumentation stable. No acute fractures. Abdominal wall intact without evidence of ventral or inguinal hernias. Bilateral hip arthroplasty results in artifact and limiting assessment of the pelvis. IMPRESSION: 1. No acute CT abdominal or pelvic findings. 2. Stable left adrenal nodule likely reflects adenoma 3. Mild sigmoid diverticulosis without evidence of diverticulitis. There is moderate fecal debris in the right colon without obstruction. Note: Final report is concordant with preliminary interpretation by [employer] Approved by: Lino Johnson M.D. on 06/27/2021 at 10:10
--- NOTE | 2021-06-27 02:52 | ED_ITS ---
HPI - Abdominal Pain General Chief Complaint: Abdominal Pain Stated Complaint: General Illness Time Seen by Provider: 06/27/21 02:45 History of Present Illness HPI narrative: 70F never smoker with history of hypertension and chronic undiagnosed GI issues presents by EMS for evaluation of gradually worsening lower abdominal pain over the course of the day followed by multiple episodes of nausea and vomiting. She has developed cramping in her bilateral extremities and become sufficiently weak to ambulate on her own. She was unable to reach out to family members and therefore called EMS for transportation. She is had Zofran at home and also with EMS with little relief. She has had no fever or chills. She denies chest pain or shortness of breath. She denies any diarrhea or urinary complaints. She denies any new medications, bad food or recent travel Related Data Home Medications Medication Instructions Recorded Confirmed amlodipine 10 mg tablet (Norvasc) 03/07/21 03/26/21 benazepril 40 mg tablet 40 mg PO DAILY 03/14/21 03/26/21 buprenorphine 4 mg-naloxone 1 mg 1 film SUBLINGUAL BID ea 03/14/21 03/26/21 sublingual film (Suboxone) naproxen 500 mg tablet 500 mg PO BID 03/14/21 03/26/21 pantoprazole 40 mg tablet,delayed 40 mg PO DAILY 03/14/21 03/26/21 release Previous Rx's Medication Instructions Recorded carvedilol 12.5 mg tablet 12.5 mg PO BID #180 tab 04/17/21 zolpidem 5 mg tablet 5 mg PO BEDTIME #30 tab 05/24/21 promethazine 12.5 mg rectal 12.5 mg DC Q4-6H PRN #12 each 06/27/21 suppository Allergies Allergy/AdvReac Type Severity Reaction Status Date / Time Penicillins Allergy Hives Verified 03/26/21 11:50 Review of Systems Review of Systems Narrative: GENERAL: See HPI HEENT: Denies sinus pain, ear pain, sore throat, difficulty swallowing, dizziness. RESPIRATORY: Denies dyspnea, cough, wheezing, hemoptysis, sputum. CARDIOVASCULAR: Denies chest pain, palpitations, orthopnea, edema, GASTROINTESTINAL: See HPI : Denies dysuria, frequency, incontinence, hematuria, urinary retention. MUSCULOSKELETAL: denies weakness, joint pain, or bony pain SKIN: Denies rash, skin lesions, or other NEUROLOGIC: Denies weakness, headache, numbness, change in speech, confusion, seizures, incoordination. PSYCHIATRIC: No concerning psychosocial issues. 12 point review of systems is negative except for those stated above Patient History Medical History Chronic back pain (~2004) Eczema H/O intravenous drug use in remission Hearing loss (~2017) Hypertension (~2010) Kidney stones (~2004) Osteoarthritis Uterine cancer (~1977) Vision disorder Surgical History Anesthesia History of cholecystectomy History of gastric bypass History of hernia repair History of hip replacement History of knee surgery History of spinal fusion Family History Father Cancer Mother Cirrhosis Grandfather History of heart disease Grandfather Cancer Grandmother Cancer Social History Smoking Status: Never smoker Smoking Status: Never smoker Substance Use Type: does not use Exam Narrative Exam Narrative: GENERAL: [70] year old patient appears stated age. Well- developed patient, in moderate distress, appears to feel unwell. Holding an emesis bag HEAD: Atraumatic. Normocephalic. EYES: Pupils equal round and reactive. Extraocular motions intact. No scleral icterus. No injection or drainage. ENT: Nose without bleeding, purulent drainage. Throat without erythema, tonsillar hypertrophy or exudate. Airway patent. NECK: Trachea midline. Non tender CARDIOVASCULAR: Regular rate and rhythm without murmurs, gallops, or rubs. RESPIRATORY: Clear to auscultation. Breath sounds equal bilaterally. No wheezes, rales, or rhonchi. GASTROINTESTINAL: Abdomen soft, non-tender, nondistended. EXTREMITIES: No edema or joint tenderness. BACK: Nontender without deformity or crepitance. No flank tenderness. NEURO: AOx3. SKIN: No rash or erythema of visible areas Initial Vital Signs Initial Vital Signs: Vital Signs Temperature 97.0 F L 06/27/21 02:55 Pulse Rate 72 06/27/21 02:55 Respiratory Rate 22 06/27/21 02:55 Blood Pressure 173/94 H 06/27/21 02:55 Pulse Oximetry 99 06/27/21 02:55 Course Orders Ordered: ED Orders 06/27/21 02:46 CT abdomen pelvis w con Stat EKG-12 Lead Stat 06/27/21 02:53 Complete Blood Count AUTO DIFF Stat Comprehensive Metabolic Panel Stat Lactate (Lactic Acid) Stat Lipase Stat Magnesium Stat Troponin & CK Cardiac Panel Stat 06/27/21 03:12 COVID19 - ADMIT (CUSTOM PROTECTION OFFICER swab/PCR) Stat Discontinued Medications Hydrocodone Bitart/Acetaminophen (Hydrocodone/Acet 5/325 Prepack) 1 bottle MISC SEEINSTR ONE Stop: 06/27/21 04:33 Hydromorphone HCl (Hydromorphone 0.5 Mg Inj) 0.5 mg IV NOW ONE Stop: 06/27/21 04:33 Last Admin: 06/27/21 04:37 Dose: 0.5 mg Documented by: Sodium Chloride (Normal Saline 0.9%) 1,000 mls @ 1,000 mls/hr IV BOLUS ONE Stop: 06/27/21 03:44 Last Infusion: 06/27/21 04:21 Dose: 0 mls/hr Documented by: Admin: 06/27/21 03:05 Dose: 1,000 mls/hr Documented by: TONIO Sodium Chloride (Normal Saline 0.9%) 1,000 mls @ 1,000 mls/hr IV BOLUS ONE Stop: 06/27/21 05:31 Last Titration: 06/27/21 05:42 Dose: Infused Documented by: Metoclopramide HCl (Metoclopramide 10 Mg/2 Ml Inj) 10 mg IV NOW ONE Stop: 06/27/21 04:32 Last Admin: 06/27/21 04:37 Dose: 10 mg Documented by: Ondansetron HCl (Ondansetron 4 Mg Odt Prepack) 1 bottle MISC SEEINSTR ONE Stop: 06/27/21 04:33 Pantoprazole Sodium (Pantoprazole 40 Mg Vial) 40 mg IV NOW ONE Stop: 06/27/21 02:46 Last Admin: 06/27/21 03:05 Dose: 40 mg Documented by: DBROYLE Vital Signs Vital signs: Vital Signs - 8 hr 06/27/21 02:55 06/27/21 03:00 06/27/21 03:36 Temperature 97.0 F L Pulse Rate 72 69 61 Respiratory Rate 22 49 H 42 H Blood Pressure 173/94 H 190/78 H Pulse Oximetry 99 99 97 06/27/21 04:00 06/27/21 04:30 06/27/21 04:39 Temperature Pulse Rate 60 65 64 Respiratory Rate 21 14 12 Blood Pressure 170/77 H Pulse Oximetry 98 100 99 06/27/21 04:40 06/27/21 05:00 06/27/21 05:30 Temperature Pulse Rate 63 66 75 Respiratory Rate 12 15 13 Blood Pressure 187/86 H 165/77 H 146/68 H Pulse Oximetry 99 98 97 MDM - Abdominal Pain Lab Data Result diagrams: 06/27/21 02:53 06/27/21 02:53 Labs: Lab Results 06/27/21 06/27/21 06/27/21 Range/Units 02:53 02:53 02:53 WBC 11.8 H (4.5-11.0) X10^3/uL RBC 4.78 (4.0-5.2) X10^6/uL Hgb 13.1 (12.0-16.0) g/dL Hct 40.1 (36-46) % MCV 83.7 (80-100) fL MCH 27.3 (26-34) PG MCHC 32.6 (30-36) % RDW 14.1 (11.6-14.8) % Plt Count 235 (150-400) X10^3/uL Neut % (Auto) 93.1 H (50-75) % Lymph % (Auto) 3.9 L (25-40) % [place] % (Auto) 1.4 L (3-14) % Eos % (Auto) 0.1 L (2-4) % Baso % (Auto) 1.5 (0-2) % Neut # (Auto) 61532 H (4679-9224) /uL Lymph # (Auto) 500 L (6825-9795) /uL [place] # (Auto) 200 (0-900) /uL Eos # (Auto) 0 (0-450) /uL Baso # (Auto) 200 H (0-100) /uL Sodium 140 (137-145) mmol/L Potassium 3.7 (3.4-5.1) mmol/L Chloride 105 (98-107) mmol/L Carbon Dioxide 26 (22-32) mmol/L BUN 20 H (7-17) mg/dL Creatinine 0.71 (0.52-1.04) mg/dL Estimated GFR > 60.0 (>60) mL/min BUN/Creatinine Ratio 28.2 H (6-22) Glucose 167 H (80-110) mg/dL Lactate 1.1 (0.7-2.1) mmol/L Calcium 9.6 (8.4-10.2) mg/dL Magnesium 2.0 (1.6-2.3) mg/dL Total Bilirubin 0.8 (0.2-1.3) mg/dL AST 22 (14-36) IU/L ALT 15 (<35) IU/L Alkaline Phosphatase 86 (38-126) U/L Total Creatine Kinase 28 L (30-135) U/L CK-MB (CK-2) TNP CK-MB (CK-2) Rel Index TNP Troponin I < 0.012 (0.01-0.034) ng/mL Total Protein 8.0 (6.3-8.2) g/dL Albumin 4.5 (3.5-5.0) g/dL Globulin 3.5 (1.7-4.1) g/dL Albumin/Globulin Ratio 1.3 (1.0-2.8) Lipase 36 (23-300) U/L SARS-CoV-2 (PCR) (Negative) 06/27/21 Range/Units 03:12 WBC (4.5-11.0) X10^3/uL RBC (4.0-5.2) X10^6/uL Hgb (12.0-16.0) g/dL Hct (36-46) % MCV (80-100) fL MCH (26-34) PG MCHC (30-36) % RDW (11.6-14.8) % Plt Count (150-400) X10^3/uL Neut % (Auto) (50-75) % Lymph % (Auto) (25-40) % [place] % (Auto) (3-14) % Eos % (Auto) (2-4) % Baso % (Auto) (0-2) % Neut # (Auto) (0897-2753) /uL Lymph # (Auto) (4119-5157) /uL [place] # (Auto) (0-900) /uL Eos # (Auto) (0-450) /uL Baso # (Auto) (0-100) /uL Sodium (137-145) mmol/L Potassium (3.4-5.1) mmol/L Chloride (98-107) mmol/L Carbon Dioxide (22-32) mmol/L BUN (7-17) mg/dL Creatinine (0.52-1.04) mg/dL Estimated GFR (>60) mL/min BUN/Creatinine Ratio (6-22) Glucose (80-110) mg/dL Lactate (0.7-2.1) mmol/L Calcium (8.4-10.2) mg/dL Magnesium (1.6-2.3) mg/dL Total Bilirubin (0.2-1.3) mg/dL AST (14-36) IU/L ALT (<35) IU/L Alkaline Phosphatase (38-126) U/L Total Creatine Kinase (30-135) U/L CK-MB (CK-2) CK-MB (CK-2) Rel Index Troponin I (0.01-0.034) ng/mL Total Protein (6.3-8.2) g/dL Albumin (3.5-5.0) g/dL Globulin (1.7-4.1) g/dL Albumin/Globulin Ratio (1.0-2.8) Lipase (23-300) U/L SARS-CoV-2 (PCR) Negative (Negative) Point of care testing: Urine Dip Bedside Urine Glucose Negative Bedside Urine Bilirubin - Negative Bedside Urine Ketone - Negative Urine Specific [place] 1.010 Bedside Urine Occult Blood - Negative Bedside Urine pH 6 Bedside Urine Protein - Negative Bedside Urine Urobilinogen - Negative Bedside Urine Nitrite - Negative Bedside Urine Leukocytes - Negative Esterase Imaging Data CT scan - abdomen/pelvis: Radiologist's Impression: No evidence of colitis, diverticulitis, bowel obstruction, obstructive uropathy, or acute appendicitis. MDM Narrative Medical decision making narrative: Multiple etiologies for patient's symptoms considered including: [Bowel obstruction versus diverticulitis versus colitis versus kidney stone versus other] Patient's symptoms improved over duration of stay with above-stated therapies. Findings and discharge diagnosis discussed with patient/family followed by verbalization of understanding Return precautions discussed with patient/family whom verbalize understanding. Discharge Plan Departure Patient Disposition: Home Clinical Impression: Abdominal pain Qualifiers: Abdominal location: generalized Qualified Code(s): R10.84 - Generalized abdominal pain Vomiting Qualifiers: Vomiting type: unspecified Vomiting Intractability: non-intractable Nausea presence: with nausea Qualified Code(s): R11.2 - Nausea with vomiting, unspecified Instructions: DI for Abdominal Pain-Adult, DI for Vomiting -- Adult Activity Restrictions/Additional Instructions: *You have been diagnosed with [abdominal pain with nausea and vomiting. Physical exam, labs and CT scan are very reassuring and there is no evidence of bowel obstruction, colitis, kidney stone or other diagnosis which would require a specific or immediate intervention] *What to do: *Please continue to take your regular medications as directed. [x ] New medication prescriptions sent to your pharmacy: [ ] [ ] New medication written as a paper prescription [ ] No new medications given *Please follow up with your primary care provider in 2-3 days, call for an appointment. Let them know you were seen in the Emergency Department and that we ask that you be seen in follow up. We will electronically transmit a record of today's note if your PCP is in our system *If you do not have a primary care provider please contact the [facility] Resource line at [phone]. They will ask some questions about your medical history and help get you set up with a doctor in the community. *Return to Emergency Department if you should have any new, worsening or concerning symptoms, such as [fever greater than 101 F, shaking chills, worsening pain, persistent vomiting or other bothersome symptoms] Prescriptions: New promethazine 12.5 mg suppository 12.5 mg DC Q4-6H PRN (Reason: nausea and vomiting) Qty: 12 RF: 0 No Action carvedilol 12.5 mg tablet 12.5 mg PO BID Qty: 180 RF: 3 zolpidem 5 mg tablet 5 mg PO BEDTIME Qty: 30 RF: 3 benazepril 40 mg tablet 40 mg PO DAILY RF: 0 pantoprazole 40 mg tablet,delayed release (DR/EC) 40 mg PO DAILY RF: 0 naproxen 500 mg tablet 500 mg PO BID RF: 0 buprenorphine-naloxone [Suboxone] 4-1 mg film 1 film sublingual BID RF: 0 amlodipine [Norvasc] 10 mg Tablet RF: 0 Referrals: Bernardo Romeo MD [Primary Care Provider] -
[2021-06-27 03:04] LABS: Add Manual Diff / Slide Review NO; Basophils Absolute Auto 200 /uL (0-100); Basophils Percent Auto 1.5 % (0-2); Eosinophils Absolute Auto 0 /uL (0-450); Eosinophils Percent Auto 0.1 % (2-4); Hematocrit 40.1 % (36-46); Hemoglobin 13.1 g/dL (12.0-16.0); Lymphocytes Absolute Auto 500 /uL (1100-4500); Lymphocytes Percent Auto 3.9 % (25-40); Mean Corpuscular HGB Conc 32.6 % (30-36); Mean Corpuscular Hemoglobin 27.3 PG (26-34); Mean Corpuscular Volume 83.7 fL (80-100); Monocytes Absolute Auto 200 /uL (0-900); Monocytes Percent Auto 1.4 % (3-14); Neutrophils Absolute Auto 10900 /uL (1500-7000); Neutrophils Percent Auto 93.1 % (50-75); Platelet Count 235 X10^3/uL (150-400); Red Blood Cell Count 4.78 X10^6/uL (4.0-5.2); Red Cell Distribution Width 14.1 % (11.6-14.8); White Blood Cell Count 11.8 X10^3/uL (4.5-11.0)
[2021-06-27] MEDS: PANTOPRAZOLE 40 MG VIAL IV (03:05)
[2021-06-27] MEDS: SODIUM CHLORIDE 0.9% 1,000 ML 1000 ML IV ×2 (03:05→04:37)
[2021-06-27 03:09] LABS: Lactate (Lactic Acid) 1.1 mmol/L (0.7-2.1)
[2021-06-27 03:11] LABS: Alanine Aminotransferase 15 IU/L (<35); Albumin 4.5 g/dL (3.5-5.0); Albumin Globulin Ratio 1.3 (1.0-2.8); Alkaline Phosphatase 86 U/L (38-126); Aspartate Aminotransferase 22 IU/L (14-36); BUN Creatinine Ratio 28.2 (6-22); Bilirubin Total 0.8 mg/dL (0.2-1.3); Blood Urea Nitrogen 20 mg/dL (7-17); Calcium 9.6 mg/dL (8.4-10.2); Carbon Dioxide 26 mmol/L (22-32); Chloride 105 mmol/L (98-107); Creatine Kinase 28 U/L (30-135); Estimated Glomerular Filt Rate > 60.0 mL/min (>60); Globulin 3.5 g/dL (1.7-4.1); Glucose 167 mg/dL (80-110); HEMOLYSIS 19 (0-50); Lipase 36 U/L (23-300); Potassium 3.7 mmol/L (3.4-5.1); Sodium 140 mmol/L (137-145)
[2021-06-27 03:22] LABS: Troponin I < 0.012 ng/mL (0.01-0.034)
[2021-06-27 04:15] LABS: COVID19 - ADMIT (NP swab/PCR) Negative (Negative)
[2021-06-27] MEDS: HYDROMORPHONE 0.5 MG INJ IV (04:37)
[2021-06-27] MEDS: METOCLOPRAMIDE 10 MG/2 ML INJ IV (04:37)
[2021-06-27] MEDS: ONDANSETRON 4 MG ODT PREPACK 1 BOTTLE MISC (06:01)
== END 2021-06-27 06:15 | disposition home or self-care (01) ==
PROVIDERS: Emergency Provider Emergency Medicine; PCP Student in an Organized Health Care Education/Training Program
DX: R10.84 Generalized abdominal pain (principal); R11.2 Nausea with vomiting, unspecified; Z20.822 Contact with and (suspected) exposure to COVID-19
CPT/HCPCS: 36415; 74177; 80053; 81003; 82550; 83605; 83690; 83735; 84484; 85025; 87635; 93005; 96361; 96374; 96375; 99284; C9803; C9113; J1170; J2765; Q9967

== ENCOUNTER → 2021-07-16 15:52 | Outpatient (CLI) | payer MEDICARE, MEDICAID, SELFPAY ==
--- NOTE | 2021-07-16 15:53 | DI.RAD.S_ITS ---
PROCEDURE: XR LUMBAR SPINE 2-3V INDICATIONS: Back pain after fall. Assess hardware stabliity. TECHNIQUE: 3 views of the lumbar spine were acquired. COMPARISON: [facility], CT, CT ABDOMEN PELVIS W CON, 06/27/2021, 2:58. FINDINGS: There are postsurgical changes of L4-L5 posterior fixation by means of bilateral rods and pedicle screws with interbody device. There is also been laminectomy at L4 and L5. The hardware appears intact with no abnormal surrounding lucency or other acute complicating hardware feature. No listhesis. Vertebral body heights maintained. [id number] multilevel degenerative changes. IMPRESSION: No acute finding. Dictated by: Edgar Diaz M.D. on 07/16/2021 at 16:42 Approved by: Egdar Diaz M.D. on 07/16/2021 at 16:43
== END ==
PROVIDERS: PCP Student in an Organized Health Care Education/Training Program; Referring Provider Student in an Organized Health Care Education/Training Program; Visit Provider Student in an Organized Health Care Education/Training Program
DX: M54.5 Low back pain (principal); Z98.1 Arthrodesis status
CPT/HCPCS: 72100

== ENCOUNTER 2022-02-20 17:32 | Emergency (ER) | payer MEDICARE, MEDICAID, SELFPAY ==
[2022-02-20 18:03] VITALS: BP 131/63; PULSE 67; RESP 17; TEMP 36.9; O2SAT 98; BMI 25.8
== END 2022-02-20 19:38 | disposition left against medical advice (07) ==
PROVIDERS: Emergency Provider Emergency Medicine; PCP Student in an Organized Health Care Education/Training Program
DX: M54.50 Low back pain, unspecified (principal); R20.0 Anesthesia of skin
CPT/HCPCS: 99281

== ENCOUNTER 2022-02-21 11:53 | Emergency (ER) | payer MEDICARE, MEDICAID, SELFPAY ==
[2022-02-21 12:07] VITALS: BP 178/79; PULSE 65; RESP 20; TEMP 37.1; O2SAT 97; BMI 25.8
--- NOTE | 2022-02-21 12:42 | ED.BACK ---
HPI - Back Pain/Injury <Gaudencio Townsend PA-C - Last Filed: 02/21/22 17:27> General Chief Complaint: Back Pain/Injury Stated Complaint: here yesterday, pain in back, poss. pinch nerve Time Seen by Provider: 02/21/22 12:22 Source: patient History of Present Illness HPI Narrative: This is a 71-year-old female presents to the emergency department due to acute on chronic lower back pain with right-sided sciatica. Patient states she has a history of spinal fusion 25 years ago but states that the pain is worsened over the last 5 days. States she feels numbness and tingling and pain to the posterior right lower extremity when she is insert positions. Denies any focal weakness, urinary or bowel incontinence, fevers, or any other concerning signs or symptoms. No acute accidents or injuries to exacerbate this pain. Patient states that she was referred to physical therapy by her primary care provider but has not yet been seen. Related Data Home Medications Medication Instructions Recorded Confirmed amlodipine 10 mg tablet (Norvasc) 03/07/21 07/16/21 benazepril 40 mg tablet 40 mg PO DAILY 03/14/21 07/16/21 buprenorphine 4 mg-naloxone 1 mg 1 film SUBLINGUAL BID ea 03/14/21 07/16/21 sublingual film (Suboxone) naproxen 500 mg tablet 500 mg PO BID 03/14/21 07/16/21 pantoprazole 40 mg tablet,delayed 40 mg PO DAILY 03/14/21 07/16/21 release Previous Rx's Medication Instructions Recorded carvedilol 12.5 mg tablet 12.5 mg PO BID #180 tab 04/17/21 zolpidem 5 mg tablet 5 mg PO BEDTIME #30 tab 05/24/21 DISABLED PARKING PERMIT #1 ea 07/16/21 cyclobenzaprine 10 mg tablet 10 mg PO BEDTIME #7 tab 02/21/22 Allergies Allergy/AdvReac Type Severity Reaction Status Date / Time Penicillins Allergy Hives Verified 02/21/22 12:07 Review of Systems <Gaudencio Townsend PA-C - Last Filed: 02/21/22 17:27> Review of Systems Narrative: See HPI Patient History <Gaudencio Townsend PA-C - Last Filed: 02/21/22 17:27> Medical History Chronic back pain (~2004) Eczema H/O intravenous drug use in remission Hearing loss (~2017) Hypertension (~2010) Kidney stones (~2004) Osteoarthritis Uterine cancer (~1977) Vision disorder Surgical History Anesthesia History of cholecystectomy History of gastric bypass History of hernia repair History of hip replacement History of knee surgery History of spinal fusion Family History Father Cancer Mother Cirrhosis Grandfather History of heart disease Grandfather Cancer Grandmother Cancer Social History Smoking Status: Never smoker Smoking Status: Never smoker Substance Use Type: does not use Exam <Gaudencio Townsend PA-C - Last Filed: 02/21/22 17:27> Initial Vital Signs Initial Vital Signs: Vital Signs Temperature 98.8 F 02/21/22 12:07 Pulse Rate 65 02/21/22 12:07 Respiratory Rate 20 02/21/22 12:07 Blood Pressure 178/79 H 02/21/22 12:07 Pulse Oximetry 97 02/21/22 12:07 Const General: cooperative and healthy appearing Back/Spine/Pelvis Other: No midline tenderness to the lumbar spine, mild right-sided paralumbar and upper gluteal tenderness to palpation. Neuro Other: No numbness or focal weakness to the right lower extremity Extrem Other: 3+ dorsalis pedis and posterior tibialis pulses bilaterally Calves appear symmetrical bilaterally, no focal swelling <Irasema Shukla DO - Last Filed: 02/22/22 08:04> Initial Vital Signs Initial Vital Signs: Vital Signs Temperature 98.8 F 02/21/22 12:07 Pulse Rate 65 02/21/22 12:07 Respiratory Rate 20 02/21/22 12:07 Blood Pressure 178/79 H 02/21/22 12:07 Pulse Oximetry 97 02/21/22 12:07 Course <Gaudencio Townsend PA-C - Last Filed: 02/21/22 17:27> Orders Ordered: Discontinued Medications Ketorolac Tromethamine (Ketorolac 30 Mg/Ml Vial) 30 mg IM NOW ONE Stop: 02/21/22 12:42 Last Admin: 02/21/22 12:46 Dose: 30 mg Documented by: SONALI Vital Signs Vital signs: Vital Signs - 8 hr 02/21/22 12:07 02/21/22 13:30 Temperature 98.8 F Pulse Rate 65 60 Respiratory Rate 20 Blood Pressure 178/79 H 130/62 Pulse Oximetry 97 94 <Irasema Shukla DO - Last Filed: 02/22/22 08:04> Orders Ordered: Discontinued Medications Ketorolac Tromethamine (Ketorolac 30 Mg/Ml Vial) 30 mg IM NOW ONE Stop: 02/21/22 12:42 Last Admin: 02/21/22 12:46 Dose: 30 mg Documented by: ZACHARYSON Vital Signs Vital signs: Vital Signs - 8 hr 02/21/22 12:07 02/21/22 13:30 Temperature 98.8 F Pulse Rate 65 60 Respiratory Rate 20 Blood Pressure 178/79 H 130/62 Pulse Oximetry 97 94 [facility] - Back Pain/Injury <Gaudencio Townsend PA-C - Last Filed: 02/21/22 17:27> [facility] Narrative Medical decision making narrative: This is a 8-year-old female presents to the emergency department due to suspected acute on chronic lower back pain with right-sided sciatic component. No acute weakness, urinary or bowel incontinence, or other findings concerning for spinal cord compromise. Suspect this is a mild exacerbation of the chronic lower back pain. Symptoms described are seen very similar to sciatica. Patient was given IM Toradol as well as prescription for muscle relaxants as well as to follow up with her primary care provider for long-term management and to continue with the physical therapy previously instructed to do. <Irasema Shukla DO - Last Filed: 02/22/22 08:04> [facility] Narrative Medical decision making narrative: This is a 71-year-old female presents to the emergency department due to suspected acute on chronic lower back pain with right-sided sciatic component. No acute weakness, urinary or bowel incontinence, or other findings concerning for spinal cord compromise. Suspect this is a mild exacerbation of the chronic lower back pain. Symptoms described are seen very similar to sciatica. Patient was given IM Toradol as well as prescription for muscle relaxants as well as to follow up with her primary care provider for long-term management and to continue with the physical therapy previously instructed to do. Discharge Plan Departure Patient Disposition: Home Clinical Impression: Sciatica Instructions: DI for Back Pain With Sciatica Activity Restrictions/Additional Instructions: Thank you for coming to the [facility] Emergency Department today. As we discussed I suspect this is something called sciatica that we spoke briefly about. Please read the attached instructions for more information. The injection given today as well as the muscle relaxants should help alleviate pain. Physical therapy is also a great choice for this and recommend he follow through with referral given to you by your primary care provider. I hope you feel better soon. Prescriptions: New cyclobenzaprine 10 mg tablet 10 mg PO BEDTIME Qty: 7 0RF No Action carvedilol 12.5 mg tablet 12.5 mg PO BID Qty: 180 3RF Rx Instructions: must administer with a meal/food zolpidem 5 mg tablet 5 mg PO BEDTIME Qty: 30 3RF Hold Instructions: Change to 10mg #20 with next fill. benazepril 40 mg tablet 40 mg PO DAILY 0RF pantoprazole 40 mg tablet,delayed release (DR/EC) 40 mg PO DAILY 0RF naproxen 500 mg tablet 500 mg PO BID 0RF buprenorphine-naloxone [Suboxone] 4-1 mg film 1 film sublingual BID 0RF (DME) DISABLED PARKING PERMIT See Rx Instructions .ROUTE .MEDSUPPLY Qty: 1 0RF Rx Instructions: I FIND THIS PATIENT TO BE MEDICALLY DISABLED AND QUALIFIED FOR DISABLE PARKING INDICATED, AND SIGNED ON THE ACCOMPANYING DISABLED PARK APPLICATION FOR INDIVIDUALS amlodipine [Norvasc] 10 mg Tablet 0RF Referrals: Bernardo Romeo MD [Primary Care Provider] - <Irasema Shukla DO - Last Filed: 02/22/22 08:04> [facility] ED Attending Mecheature Attestation: I was immediately available in the department for consultation. Documentation has been reviewed. I agree with assessment and plan.
[2022-02-21] MEDS: KETOROLAC 30 MG/ML VIAL IM (12:46)
--- NOTE | 2022-02-21 12:50 | PC.NURSE ---
Right lower back pain radiating down right leg. Patient reports history of fusion and attributed the pain to that pain radiates down leg. Equal strength. CMS intact.
[2022-02-21 13:30] VITALS: BP 130/62; PULSE 60; O2SAT 94
== END 2022-02-21 13:38 | disposition home or self-care (01) ==
PROVIDERS: Emergency Provider Physician Assistant Medical; PCP Student in an Organized Health Care Education/Training Program
DX: M54.41 Lumbago with sciatica, right side (principal)
CPT/HCPCS: 96372; 99283; J1885

== ENCOUNTER → 2023-05-26 10:14 | Outpatient (RCR) | payer MEDICARE, MEDICAID, SELFPAY ==
--- NOTE | 2022-03-13 16:00 | PT.OPPOC ---
Physical, Occupational & Speech Therapy At [facility] Current Diagnoses Other chronic pain (03/13/22) Lumbago with sciatica, right side (03/13/22) Abnormal posture (03/13/22) Weakness (03/13/22) Visit Care Team Role Provider Type Adan Gary MD Family Provider Non-Staff Primary Care Provider Specialty: Medical Address: [facility], [address] [place] [address], [id number] Email: Claire Zhang DO Attending Provider Non-Staff Referring Provider Specialty: Medical Address: [address] [place] [address], [id number] Email: Plan Of Care PT-OP-T Assessment and Plan Start: 03/11/22 17:18 Freq: Status: Active Protocol: Document 03/13/22 13:45 [facility] (Rec: 03/16/22 09:25 [facility] [id number]) Physical Therapy Assessment Rehab Potential Rehabilitation Potential Good Evaluation Complexity Number of Personal Factors/Comorbidities 1-2 Number of Body Systems Impaired 3 Clinical Presentation at Evaluation Evolving Impairments Impairments Activity Tolerance,Pain, Posture,Strength Goals Four Impairment weakness, poor core stabilization Short Term Goal (STG) instruct in HEP with emphasis on core strengthening and stabilization, patient to initiate aquatic exercise STG Duration 03/30/22 Student Support Advisor Goal (LTG) Patient to be independent with HEP and aquatic exercise program for purposes of long- term pain management and fitness. LTG Duration 05/15/22 Three Impairment posture, gait Impairment leg length discrepancy affecting postural alignment and gait Student Support Advisor Goal (LTG) Patient to be fit with appropriate orthopedic shoe with lift to allow her to improve her standing pstural alignment and tolerate standing and walking for at least 20 min without an increase in her symptoms LTG Duration 05/15/22 Two Impairment Activity tolerance Impairment Oswestry disabiity index score 54% Short Term Goal (STG) Improve JOSELINE score to no greater than 40% as measure of improved activity tolerance STG Duration 04/14/22 Long-Term Goal (LTG) Improve OD score to no greater than 25% as measure of improved activity tolerance and quality of life LTG Duration 05/15/22 One Impairment pain lumbar spine, buttock, and right LE as high as 8/10 Long-Term Goal (LTG) Pain no greater than 2/10 with all usual activities LTG Duration 05/15/22 Assessment Summary Assessment Patient presents to PT with function-limiting pain right lumbar spine, buttock, and posterior LE which increases with standing and walking limiting her activity tolerance in the home and community. She has a significant leg length discrepancy today at 1 right leg longer then left supine, decreases to 2/3 of an inch in long sit. In standing has excess right knee flexion due to this discrepancy. With forward flexion patient's spine deviates to the right. In addition patient has had 3 prior abdominal surgeries which have impacted her core musculature. She has some symptomatic relief with gentle manual traction in hooklying position. She states previously a shoe with a lift was recommended for her but she never obtained it; instructed to get referral from physician and obtain to allow her to stand and walk with improved symmetry and decreased abnormal stressors on her spine, pelvis, and hips . Deep water aquatic exercise was also recommended for her to allow her to move and excervise without the leg length discrepancy being an issue. She was instructed in gentle ther ex to start with today emphasizing core strengthening and stabilization and this will be progressed as tolerated. Feel she would benefit from physical therapy to address the above goals. POC was discussed and she was in agreement. Physical Therapy Plan Frequency and Duration Frequency of Treatment 2x/Week Duration of Treatment 8 wks Plan of Care Start Date 03/13/22 Plan of Care End Date 05/15/22 Therapeutic Interventions Therapeutic Interventions Aquatic Therapy,Home Exercise Program,Manual Therapy, Neuromuscular Re-education, Patient/Caregiver Education, Self-Care/Home Management,Soft Tissue Mobilization,Taping, Therapeutic Activities, Therapeutic Exercises Modalities Cold Pack/Ice Massage,Electric Stimulation,Hot Packs, Traction- Mechanical, Ultrasound Other Therapeutic Interventions gentle with manual or mechanical traction due to fusion Next Visit Focus/Plan Next Note Type Treatment Note Next Visit Plan Review HEP, progress core strengthening and stabilization as tolerated. Gentle manual traction as tolerated. Possible manual STM right l/s and piriformis. Assure patient has requested referral for orthopedic shoe with lift. Plan of Care Dates Plan of Care Start Date 03/13/22 Plan of Care End Date 05/15/22 Electronically Signed by: Reba Cid, PT 03/16/22 0927 If you are in agreement with this Plan of Care, please return a signed and dated copy. I have reviewed this Plan of Care and certify that the skilled therapy services above are required to meet the patient?s needs. Physician Signature Date Printed Name and Credentials Clinical Instructor Signature Printed Name and Credentials
--- NOTE | 2022-03-13 16:00 | PT.OIE ---
Current Diagnoses Other chronic pain (03/13/22) Lumbago with sciatica, right side (03/13/22) Abnormal posture (03/13/22) Weakness (03/13/22) Past Medical History (Last Reviewed 06/27/21 @ 02:55 by Gaston Chowdhury DO) Chronic back pain (~2004) Eczema H/O intravenous drug use in remission Hearing loss (~2017) History of cholecystectomy History of gastric bypass History of hernia repair History of hip replacement History of knee surgery History of spinal fusion Hypertension (~2010) Kidney stones (~2004) Osteoarthritis Uterine cancer (~1977) Vision disorder Past Surgical History (Last Reviewed 06/27/21 @ 02:55 by Gaston Chowdhury DO) Anesthesia History of cholecystectomy History of gastric bypass History of hernia repair History of hip replacement History of knee surgery History of spinal fusion Visit Care Team Role Provider Type Adan Gary MD Family Provider Non-Staff Primary Care Provider Specialty: Medical Address: [facility], [address] [place] [address], [id number] Email: Claire Zhang DO Attending Provider Non-Staff Referring Provider Specialty: Medical Address: [address] [place] [address], [id number] Email: Physical Therapy Initial Evaluation PT-OP-A Visit Information Start: 03/11/22 17:18 Freq: Status: Active Protocol: Document 03/13/22 13:45 [facility]AK (Rec: 03/16/22 09:25 [facility] [id number]) Out-Patient Physical Therapy Visit Information Visit Information Visit Type Initial Evaluation Visit Start Time 13:45 Visit Stop Time 14:30 Total Visit Minutes 50 Visit Number 1 Precautions Precautions PMH: L4-5 fusion 25 yrs ago, edna NAJMA and TKA, 3 abdominal surgeries. PT-OP-B Current Condition Start: 03/11/22 17:18 Freq: Status: Active Protocol: Document 03/13/22 13:45 [facility]AK (Rec: 03/16/22 09:25 [facility] [id number]) Current Condition History of Current Condition Onset Date 1 month Current Complaints LBP with radicular symptoms right posterior LE History of Current Condition Long history of LBP with reported L45 fusion years ago . Has also been told she should wear special shoes because of her c/o leg length discrepancy but hasn't ever worn. Recent exacerbation of pain with no known cause. Pain severely limits her standing tolerance as reports immediate increase in pain with gradual onset of numbness left LE especially her foot. Prior Treatments and Tests lumbar x-ray 07/16/21: There are postsurgical changes of L4 -L5 posterior fixation by means of bilateral rods and pedicle screws with interbody device. There is also been laminectomy at L4 and L5. The hardware appears intact with no abnormal surrounding lucency or other acute complicating hardware feature. No listhesis. Vertebral body heights maintained. Mild-to- moderate multilevel degenerative changes. Treatment Goals Patient/Caregiver Goals minimize pain, be able to do usual activities Prior Functional Status Baseline Function- ADL's Modified Independent Baseline Function- Mobility Modified Independent Baseline Function- Gait independent, no device Baseline Function- Work/School retired Current Functional Impairments (Reported) Functional Limitations- ADL's painful Functional Limitations- Mobility/Gait limited, antalgic PT-OP-C Subjective Start: 03/11/22 17:18 Freq: Status: Active Protocol: Document 03/13/22 13:45 [facility] (Rec: 03/16/22 09:25 [facility] [id number]) OP-PT Pain Assessment Location right LB, gluteal reg, posterior LE Scale Used Numeric (0 - 10) Description Aching,Burning,Chronic, Shooting,Tender,Throbbing Frequency Frequent Pain Aggravating Factors Standing,Walking Pain Alleviating Factors Inactivity,Rest Pain Behaviors Pain Behaviors Facial Grimacing,Guarding, Wincing PT-OP-G Mobility & Gait Start: 03/11/22 17:18 Freq: Status: Active Protocol: Document 03/13/22 13:45 [facility] (Rec: 03/16/22 09:25 [facility] [id number]) OP Mobility Evaluation Transfers Sit to Stand dec weight bearing right OP Gait Assessment Gait Gait Assistance Required: Independent Assistive Devices Assistive Device None Gait Deviations General Gait Pattern Antalgic PT-OP-H Neuro Start: 03/11/22 17:18 Freq: Status: Active Protocol: Document 03/13/22 13:45 [facility] (Rec: 03/16/22 09:25 [facility] [id number]) Sensation Evaluation Gross Sensation Gross Sensation Right LE Impaired Sensation Description Numbness,Tingling,Heaviness Location Details Right Distal Lower Extremity Light Touch Impaired PT-OP-J Posture/Palpation/Skin Start: 03/11/22 17:18 Freq: Status: Active Protocol: Document 03/13/22 13:45 [facility] (Rec: 03/16/22 09:25 [facility] [id number]) Posture Evaluation Position Standing Head/C-Spine Posture Forward Head T-Spine Posture Increased Kyphosis Thorax Posture (R) Prominent Scapula Posture (L) Protracted,(R) Protracted Pelvis Posture Anteriorly Tilted Hip Posture (R) Externally Rotated Knee Posture (R) Excess Flexion Ankle/Foot Posture (R) Pronated Palpation Assessment Location right buttock Palpation Findings Soft Tissue Tightness,Muscle Guarding,Tenderness right lumbar paraspinals Palpation Findings Soft Tissue Tightness,Muscle Guarding,Tenderness PT-OP-K Range of Motion Start: 03/11/22 17:18 Freq: Status: Active Protocol: Document 03/13/22 13:45 [facility] (Rec: 03/16/22 09:25 [facility] [id number]) Lumbar Spine Range of Motion Lumbar Spine Active Testing Position Standing Flexion 25 Extension 10 Rotation Left 20 Rotation Right 15 Lateral Flexion Left 25 Lateral Flexion Right 20 ROM Limitations Soft Tissue Tightness,Bony Restriction,Pain Hip Goniometric Range of Motion Hip Right Flexion w/Knee Flexed 100 Straight Leg Raise 60 Extension 0 Abduction 40 Internal Rotation 10 External Rotation 50 Left Flexion w/Knee Flexed 105 Straight Leg Raise 65 Extension 0 Abduction 40 Internal Rotation 25 External Rotation 70 PT-OP-L Special Tests Start: 03/11/22 17:18 Freq: Status: Active Protocol: Document 03/13/22 13:45 [facility] (Rec: 03/16/22 09:25 [facility] [id number]) Special Tests Lumbar Spine Special Tests Manual Traction Test Results positive dec symptoms Compression Test Results positive inc symptoms Straight Leg Raise Test Results negative Passive Neck Flexion Test Results negative Hip Special Tests TERI Test Results negative edna Scour Test Test Results negative edna PT-OP-M Strength Start: 03/11/22 17:18 Freq: Status: Active Protocol: Document 03/13/22 13:45 [facility] (Rec: 03/16/22 09:25 [facility] [id number]) Hip Strength Hip Manual Muscle Testing Right Flexion (L2) 4- Good- Extension (S1) 3+ Fair+ Abduction 4- Good- Adduction 4- Good- External Rotation 4- Good- Internal Rotation 4 Good Left Flexion (L2) 4 Good Extension (S1) 3+ Fair+ Abduction 4- Good- Adduction 4 Good External Rotation 4- Good- Internal Rotation 4- Good- Knee Strength Knee Manual Muscle Testing Right Flexion (S2) 4 Good Extension (L3) 4 Good Comments c/o inc pain Left Flexion (S2) 5 Normal Extension (L3) 5 Normal Ankle/Foot Strength Ankle and Foot Manual Muscle Testing Right Dorsiflexion (L4) 4 Good Plantarflexion (S1) 4 Good Left Dorsiflexion (L4) 4+ Good+ Plantarflexion (S1) 4+ Good+ PT-OP-Q Treatments Start: 03/11/22 17:18 Freq: Status: Active Protocol: Document 03/13/22 13:45 [facility] (Rec: 03/16/22 09:25 [facility] [id number]) Self-Care/Home Management Treatment Education Patient Education Home Exercise Program,Pain Management,Posture Other Education importance of obtaining shoe with lift due to significant leg length discrepancy recomended patient do aquatic exercise/PT; has previously done some aquatic exercise with good results. PT-OP-R Modalities Start: 03/11/22 17:18 Freq: Status: Active Protocol: Document 03/13/22 13:45 [facility] (Rec: 03/16/22 09:25 [facility] [id number]) Hot Pack/Cold Pack Treatment Cold Pack Location lumbar spine, buttock edna Patient Position Hooklying PT-OP-T Assessment and Plan Start: 03/11/22 17:18 Freq: Status: Active Protocol: Document 03/13/22 13:45 [facility] (Rec: 03/16/22 09:25 [facility] [id number]) Physical Therapy Assessment Rehab Potential Rehabilitation Potential Good Evaluation Complexity Number of Personal Factors/Comorbidities 1-2 Number of Body Systems Impaired 3 Clinical Presentation at Evaluation Evolving Impairments Impairments Activity Tolerance,Pain, Posture,Strength Goals Four Impairment weakness, poor core stabilization Short Term Goal (STG) instruct in HEP with emphasis on core strengthening and stabilization, patient to initiate aquatic exercise STG Duration 03/30/22 Halfway Goal (LTG) Patient to be independent with HEP and aquatic exercise program for purposes of long- term pain management and fitness. LTG Duration 05/15/22 Three Impairment posture, gait Impairment leg length discrepancy affecting postural alignment and gait Smoking Pipe Maker Goal (LTG) Patient to be fit with appropriate orthopedic shoe with lift to allow her to improve her standing pstural alignment and tolerate standing and walking for at least 20 min without an increase in her symptoms LTG Duration 05/15/22 Two Impairment Activity tolerance Impairment Oswestry disabiity index score 54% Short Term Goal (STG) Improve JOSELINE score to no greater than 40% as measure of improved activity tolerance STG Duration 04/14/22 Halfway Goal (LTG) Improve OD score to no greater than 25% as measure of improved activity tolerance and quality of life LTG Duration 05/15/22 One Impairment pain lumbar spine, buttock, and right LE as high as 8/10 Smoking Pipe Maker Goal (LTG) Pain no greater than 2/10 with all usual activities LTG Duration 05/15/22 Assessment Summary Assessment Patient presents to PT with function-limiting pain right lumbar spine, buttock, and posterior LE which increases with standing and walking limiting her activity tolerance in the home and community. She has a significant leg length discrepancy today at 1 right leg longer then left supine, decreases to 2/3 of an inch in long sit. In standing has excess right knee flexion due to this discrepancy. With forward flexion patient's spine deviates to the right. In addition patient has had 3 prior abdominal surgeries which have impacted her core musculature. She has some symptomatic relief with gentle manual traction in hooklying position. She states previously a shoe with a lift was recommended for her but she never obtained it; instructed to get referral from physician and obtain to allow her to stand and walk with improved symmetry and decreased abnormal stressors on her spine, pelvis, and hips . Deep water aquatic exercise was also recommended for her to allow her to move and excervise without the leg length discrepancy being an issue. She was instructed in gentle ther ex to start with today emphasizing core strengthening and stabilization and this will be progressed as tolerated. Feel she would benefit from physical therapy to address the above goals. POC was discussed and she was in agreement. Physical Therapy Plan Frequency and Duration Frequency of Treatment 2x/Week Duration of Treatment 8 wks Plan of Care Start Date 03/13/22 Plan of Care End Date 05/15/22 Therapeutic Interventions Therapeutic Interventions Aquatic Therapy,Home Exercise Program,Manual Therapy, Neuromuscular Re-education, Patient/Caregiver Education, Self-Care/Home Management,Soft Tissue Mobilization,Taping, Therapeutic Activities, Therapeutic Exercises Modalities Cold Pack/Ice Massage,Electric Stimulation,Hot Packs, Traction- Mechanical, Ultrasound Other Therapeutic Interventions gentle with manual or mechanical traction due to fusion Next Visit Focus/Plan Next Note Type Treatment Note Next Visit Plan Review HEP, progress core strengthening and stabilization as tolerated. Gentle manual traction as tolerated. Possible manual STM right l/s and piriformis. Assure patient has requested referral for orthopedic shoe with lift.
--- NOTE | 2022-03-20 17:04 | PT.OTN ---
Current Diagnoses Other chronic pain (03/20/22) Lumbago with sciatica, right side (03/20/22) Abnormal posture (03/20/22) Weakness (03/20/22) Physical Therapy Treatment Note PT-OP-A Visit Information Start: 03/11/22 17:18 Freq: Status: Active Protocol: Document 03/20/22 13:04 LRN (Rec: 03/20/22 13:49 LRN [id number]) Out-Patient Physical Therapy Visit Information Visit Information Visit Type Treatment Note Visit Start Time 13:03 Visit Stop Time 13:48 Total Visit Minutes 45 Visit Number 2 Precautions Precautions PMH: L4-5 fusion 25 yrs ago, edna NAJMA and TKA, 3 abdominal surgeries. 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 Has also been told she should wear special shoes because of her c/o leg length discrepancy but hasn't ever worn. Recent exacerbation of pain with no known cause. Pain severely limits her standing tolerance as reports immediate increase in pain with gradual onset of numbness left LE especially her foot. Prior Treatments and Tests lumbar x-ray 07/16/21: There are postsurgical changes of L4 -L5 posterior fixation by means of bilateral rods and pedicle screws with interbody device. There is also been laminectomy at L4 and L5. The hardware appears intact with no abnormal surrounding lucency or other acute complicating hardware feature. No listhesis. Vertebral body heights maintained. Mild-to- moderate multilevel degenerative changes. Treatment Goals Patient/Caregiver Goals minimize pain, be able to do usual activities Prior Functional Status Baseline Function- ADL's Modified Independent Baseline Function- Mobility Modified Independent Baseline Function- Gait independent, no device Baseline Function- Work/School retired Current Functional Impairments (Reported) Functional Limitations- ADL's painful Functional Limitations- Mobility/Gait limited, antalgic PT-OP-C Subjective Start: 03/11/22 17:18 Freq: Status: Active Protocol: Document 03/20/22 13:04 LRN (Rec: 03/20/22 13:49 [facility] [id number]) OP-PT Subjective Patient Comments Patient Comments Last 2 days the pain has been returning, numbness has always been there. Last prednisone pill was 3 days ago. Has OMT scheduled 03/31/22. PT-OP-G Mobility & Gait Start: 03/11/22 17:18 Freq: Status: Active Protocol: Document 03/13/22 13:45 SAK (Rec: 03/16/22 09:25 [facility] [id number]) OP Mobility Evaluation Transfers Sit to Stand dec weight bearing right OP Gait Assessment Gait Gait Assistance Required: Independent Assistive Devices Assistive Device None Gait Deviations General Gait Pattern Antalgic PT-OP-H Neuro Start: 03/11/22 17:18 Freq: Status: Active Protocol: Document 03/13/22 13:45 SAK (Rec: 03/16/22 09:25 [facility] [id number]) Sensation Evaluation Gross Sensation Gross Sensation Right LE Impaired Sensation Description Numbness,Tingling,Heaviness Location Details Right Distal Lower Extremity Light Touch Impaired PT-OP-J Posture/Palpation/Skin Start: 03/11/22 17:18 Freq: Status: Active Protocol: Document 03/13/22 13:45 SAK (Rec: 03/16/22 09:25 [facility] [id number]) Posture Evaluation Position Standing Head/C-Spine Posture Forward Head T-Spine Posture Increased Kyphosis Thorax Posture (R) Prominent Scapula Posture (L) Protracted,(R) Protracted Pelvis Posture Anteriorly Tilted Hip Posture (R) Externally Rotated Knee Posture (R) Excess Flexion Ankle/Foot Posture (R) Pronated Palpation Assessment Location right buttock Palpation Findings Soft Tissue Tightness,Muscle Guarding,Tenderness right lumbar paraspinals Palpation Findings Soft Tissue Tightness,Muscle Guarding,Tenderness PT-OP-K Range of Motion Start: 03/11/22 17:18 Freq: Status: Active Protocol: Document 03/13/22 13:45 SAK (Rec: 03/16/22 09:25 [facility] [id number]) Lumbar Spine Range of Motion Lumbar Spine Active Testing Position Standing Flexion 25 Extension 10 Rotation Left 20 Rotation Right 15 Lateral Flexion Left 25 Lateral Flexion Right 20 ROM Limitations Soft Tissue Tightness,Bony Restriction,Pain Hip Goniometric Range of Motion Hip Right Flexion w/Knee Flexed 100 Straight Leg Raise 60 Extension 0 Abduction 40 Internal Rotation 10 External Rotation 50 Left Flexion w/Knee Flexed 105 Straight Leg Raise 65 Extension 0 Abduction 40 Internal Rotation 25 External Rotation 70 PT-OP-L Special Tests Start: 03/11/22 17:18 Freq: Status: Active Protocol: Document 03/13/22 13:45 [facility] (Rec: 03/16/22 09:25 [facility] [id number]) Special Tests Lumbar Spine Special Tests Manual Traction Test Results positive dec symptoms Compression Test Results positive inc symptoms Straight Leg Raise Test Results negative Passive Neck Flexion Test Results negative Hip Special Tests TERI Test Results negative edna Scour Test Test Results negative edna PT-OP-M Strength Start: 03/11/22 17:18 Freq: Status: Active Protocol: Document 03/13/22 13:45 [facility] (Rec: 03/16/22 09:25 [facility] [id number]) Hip Strength Hip Manual Muscle Testing Right Flexion (L2) 4- Good- Extension (S1) 3+ Fair+ Abduction 4- Good- Adduction 4- Good- External Rotation 4- Good- Internal Rotation 4 Good Left Flexion (L2) 4 Good Extension (S1) 3+ Fair+ Abduction 4- Good- Adduction 4 Good External Rotation 4- Good- Internal Rotation 4- Good- Knee Strength Knee Manual Muscle Testing Right Flexion (S2) 4 Good Extension (L3) 4 Good Comments c/o inc pain Left Flexion (S2) 5 Normal Extension (L3) 5 Normal Ankle/Foot Strength Ankle and Foot Manual Muscle Testing Right Dorsiflexion (L4) 4 Good Plantarflexion (S1) 4 Good Left Dorsiflexion (L4) 4+ Good+ Plantarflexion (S1) 4+ Good+ PT-OP-Q Treatments Start: 03/11/22 17:18 Freq: Status: Active Protocol: Document 03/20/22 13:04 LRN (Rec: 03/20/22 13:49 LRN [id number]) Therapeutic Exercises Supine Exercises TA/TB hip ER Equipment Used Lev 1 TB Reps/Minutes 2' TA/Pillow Sqeeze Reps/Minutes 2' TA tightening Reps/Minutes 2' Piriformis stretch Supine Exercise Name Knee to opp shoulder - folded towel under low back Side right Reps/Minutes 2' Comments Extra time taken to position in best tolerated hip stretch w/o LBP Manual Therapy Treatment Manual Traction Lumbar Details Strap around distal thigs Body Position Hooklying Reps/Duration 8' Comments Decrease pain to 0/10 with traction Self-Care/Home Management Treatment Education Patient Education Home Exercise Program,Posture Other Education Pt education in proper standing posture and correct posture with gait. Transfer training stand<> supine x 3, until pt able to preform properly. Body mechanics training for collapsing/opening, lifting, and moving 4WW in/out of car. Activities Self-Care/Home Management Activities Adjusted 4WW to max height allowable. I/S pt in Piriformis stretch for HEP with folded towel under Low back (knee to opposite shoulder) and for precaution as to not force stretch due to NAJMA history. PT-OP-R Modalities Start: 03/11/22 17:18 Freq: Status: Active Protocol: Document 03/13/22 13:45 SAK (Rec: 03/16/22 09:25 SAK [id number]) Hot Pack/Cold Pack Treatment Cold Pack Location lumbar spine, buttock edna Patient Position Hooklying PT-OP-T Assessment and Plan Start: 03/11/22 17:18 Freq: Status: Active Protocol: Document 03/20/22 13:04 LRN (Rec: 03/20/22 13:49 LRN [id number]) Physical Therapy Assessment Goals Four Impairment weakness, poor core stabilization Short Term Goal (STG) instruct in HEP with emphasis on core strengthening and stabilization, patient to initiate aquatic exercise STG Duration 03/30/22 Continuing Education Dean Goal (LTG) Patient to be independent with HEP and aquatic exercise program for purposes of long- term pain management and fitness. LTG Duration 05/15/22 Three Impairment posture, gait Impairment leg length discrepancy affecting postural alignment and gait Mcc Goal (LTG) Patient to be fit with appropriate orthopedic shoe with lift to allow her to improve her standing pstural alignment and tolerate standing and walking for at least 20 min without an increase in her symptoms LTG Duration 05/15/22 Two Impairment Activity tolerance Impairment Oswestry disabiity index score 54% Short Term Goal (STG) Improve JOSELINE score to no greater than 40% as measure of improved activity tolerance STG Duration 04/14/22 Continuing Education Dean Goal (LTG) Improve OD score to no greater than 25% as measure of improved activity tolerance and quality of life LTG Duration 05/15/22 One Impairment pain lumbar spine, buttock, and right LE as high as 8/10 Mcc Goal (LTG) Pain no greater than 2/10 with all usual activities LTG Duration 05/15/22 Assessment Summary Assessment Pt 4WW is slightly short for pt, but pt able to demonstrate greater awareness of standing upright during gait with walker. Pt transferred improperly stnd<>supine to start, but showed good body mechanics after transfer training. Pt demonstrates good knowledge with HEP previously issued. Pt is aware of caution with R Piriformis stretch due to NAJMA. Physical Therapy Plan Frequency and Duration Frequency of Treatment 2x/Week Duration of Treatment 8 wks Plan of Care Start Date 03/13/22 Plan of Care End Date 05/15/22 Next Visit Focus/Plan Next Note Type Treatment Note Next Visit Plan Review Piriformis stretch and issue HEP is appropriate and discuss body mechanics/ transfers if needed; progress core strengthening and stabilization as tolerated, add piriformis stretch right. Gentle manual traction as tolerated. Possible manual STM right l/s and piriformis. Assure patient has requested referral for orthopedic shoe with lift.
--- NOTE | 2022-03-27 09:31 | PT.OTN ---
Current Diagnoses Other chronic pain (03/27/22) Lumbago with sciatica, right side (03/27/22) Abnormal posture (03/27/22) Weakness (03/27/22) Physical Therapy Treatment Note PT-OP-A Visit Information Start: 03/11/22 17:18 Freq: Status: Active Protocol: Document 03/27/22 13:00 SAK (Rec: 03/27/22 13:49 [facility] [id number]) Out-Patient Physical Therapy Visit Information Visit Information Visit Type Treatment Note Visit Start Time 13:00 Visit Stop Time 13:55 Total Visit Minutes 55 Visit Number 3 Precautions Precautions PMH: L4-5 fusion 25 yrs ago, edna NAJMA and TKA, 3 abdominal surgeries. PT-OP-B Current Condition Start: 03/11/22 17:18 Freq: Status: Active Protocol: Document 03/13/22 13:45 SAK (Rec: 03/16/22 09:25 SAK [id number]) Current Condition History of Current Condition Onset Date 1 month Current Complaints LBP with radicular symptoms right posterior LE History of Current Condition Long history of LBP with reported L45 fusion years ago . Has also been told she should wear special shoes because of her c/o leg length discrepancy but hasn't ever worn. Recent exacerbation of pain with no known cause. Pain severely limits her standing tolerance as reports immediate increase in pain with gradual onset of numbness left LE especially her foot. Prior Treatments and Tests lumbar x-ray 07/16/21: There are postsurgical changes of L4 -L5 posterior fixation by means of bilateral rods and pedicle screws with interbody device. There is also been laminectomy at L4 and L5. The hardware appears intact with no abnormal surrounding lucency or other acute complicating hardware feature. No listhesis. Vertebral body heights maintained. Mild-to- moderate multilevel degenerative changes. Treatment Goals Patient/Caregiver Goals minimize pain, be able to do usual activities Prior Functional Status Baseline Function- ADL's Modified Independent Baseline Function- Mobility Modified Independent Baseline Function- Gait independent, no device Baseline Function- Work/School retired Current Functional Impairments (Reported) Functional Limitations- ADL's painful Functional Limitations- Mobility/Gait limited, antalgic PT-OP-C Subjective Start: 03/11/22 17:18 Freq: Status: Active Protocol: Document 03/27/22 13:00 SAK (Rec: 03/27/22 13:49 [facility] [id number]) OP-PT Subjective Patient Comments Patient Comments Pain worse, done taking Prednisone, felt like it was working. Cant hardly do anything. Has to use her 4- wheeled walker. Pain increases as soon as she stands up. PT-OP-G Mobility & Gait Start: 03/11/22 17:18 Freq: Status: Active Protocol: Document 03/13/22 13:45 [facility] (Rec: 03/16/22 09:25 [facility] [id number]) OP Mobility Evaluation Transfers Sit to Stand dec weight bearing right OP Gait Assessment Gait Gait Assistance Required: Independent Assistive Devices Assistive Device None Gait Deviations General Gait Pattern Antalgic PT-OP-H Neuro Start: 03/11/22 17:18 Freq: Status: Active Protocol: Document 03/13/22 13:45 [facility] (Rec: 03/16/22 09:25 [facility] [id number]) Sensation Evaluation Gross Sensation Gross Sensation Right LE Impaired Sensation Description Numbness,Tingling,Heaviness Location Details Right Distal Lower Extremity Light Touch Impaired PT-OP-J Posture/Palpation/Skin Start: 03/11/22 17:18 Freq: Status: Active Protocol: Document 03/13/22 13:45 [facility] (Rec: 03/16/22 09:25 [facility] [id number]) Posture Evaluation Position Standing Head/C-Spine Posture Forward Head T-Spine Posture Increased Kyphosis Thorax Posture (R) Prominent Scapula Posture (L) Protracted,(R) Protracted Pelvis Posture Anteriorly Tilted Hip Posture (R) Externally Rotated Knee Posture (R) Excess Flexion Ankle/Foot Posture (R) Pronated Palpation Assessment Location right buttock Palpation Findings Soft Tissue Tightness,Muscle Guarding,Tenderness right lumbar paraspinals Palpation Findings Soft Tissue Tightness,Muscle Guarding,Tenderness PT-OP-K Range of Motion Start: 03/11/22 17:18 Freq: Status: Active Protocol: Document 03/13/22 13:45 [facility] (Rec: 03/16/22 09:25 [facility] [id number]) Lumbar Spine Range of Motion Lumbar Spine Active Testing Position Standing Flexion 25 Extension 10 Rotation Left 20 Rotation Right 15 Lateral Flexion Left 25 Lateral Flexion Right 20 ROM Limitations Soft Tissue Tightness,Bony Restriction,Pain Hip Goniometric Range of Motion Hip Right Flexion w/Knee Flexed 100 Straight Leg Raise 60 Extension 0 Abduction 40 Internal Rotation 10 External Rotation 50 Left Flexion w/Knee Flexed 105 Straight Leg Raise 65 Extension 0 Abduction 40 Internal Rotation 25 External Rotation 70 PT-OP-L Special Tests Start: 03/11/22 17:18 Freq: Status: Active Protocol: Document 03/13/22 13:45 [facility] (Rec: 03/16/22 09:25 [facility] [id number]) Special Tests Lumbar Spine Special Tests Manual Traction Test Results positive dec symptoms Compression Test Results positive inc symptoms Straight Leg Raise Test Results negative Passive Neck Flexion Test Results negative Hip Special Tests TERI Test Results negative edna Scour Test Test Results negative edna PT-OP-M Strength Start: 03/11/22 17:18 Freq: Status: Active Protocol: Document 03/13/22 13:45 [facility] (Rec: 03/16/22 09:25 [facility] [id number]) Hip Strength Hip Manual Muscle Testing Right Flexion (L2) 4- Good- Extension (S1) 3+ Fair+ Abduction 4- Good- Adduction 4- Good- External Rotation 4- Good- Internal Rotation 4 Good Left Flexion (L2) 4 Good Extension (S1) 3+ Fair+ Abduction 4- Good- Adduction 4 Good External Rotation 4- Good- Internal Rotation 4- Good- Knee Strength Knee Manual Muscle Testing Right Flexion (S2) 4 Good Extension (L3) 4 Good Comments c/o inc pain Left Flexion (S2) 5 Normal Extension (L3) 5 Normal Ankle/Foot Strength Ankle and Foot Manual Muscle Testing Right Dorsiflexion (L4) 4 Good Plantarflexion (S1) 4 Good Left Dorsiflexion (L4) 4+ Good+ Plantarflexion (S1) 4+ Good+ PT-OP-Q Treatments Start: 03/11/22 17:18 Freq: Status: Active Protocol: Document 03/27/22 13:00 [facility] (Rec: 03/27/22 13:49 [facility] [id number]) Therapeutic Exercises Supine Exercises gluteal set Reps/Minutes 10x Comments with small bridge TA/TB hip ER Equipment Used Lev 1 TB Reps/Minutes 2' TA/Pillow Sqeeze Reps/Minutes 2' Manual Therapy Treatment Manual Traction Lumbar Details Strap around distal thigs Body Position Hooklying Reps/Duration 8' Comments gentle Manual Techniques MET Type for ant rotation right innominate Reps/Duration 10 Comments supine and sidelying PT-OP-R Modalities Start: 03/11/22 17:18 Freq: Status: Active Protocol: Document 03/13/22 13:45 [facility] (Rec: 03/16/22 09:25 [facility] [id number]) Hot Pack/Cold Pack Treatment Cold Pack Location lumbar spine, buttock edna Patient Position Hooklying PT-OP-T Assessment and Plan Start: 03/11/22 17:18 Freq: Status: Active Protocol: Document 03/27/22 13:00 SAK (Rec: 03/27/22 13:49 [facility] [id number]) Physical Therapy Assessment Goals Four Impairment weakness, poor core stabilization Short Term Goal (STG) instruct in HEP with emphasis on core strengthening and stabilization, patient to initiate aquatic exercise STG Duration 03/30/22 Retail Link Analyst Goal (LTG) Patient to be independent with HEP and aquatic exercise program for purposes of long- term pain management and fitness. LTG Duration 05/15/22 Three Impairment posture, gait Impairment leg length discrepancy affecting postural alignment and gait Halfway Goal (LTG) Patient to be fit with appropriate orthopedic shoe with lift to allow her to improve her standing pstural alignment and tolerate standing and walking for at least 20 min without an increase in her symptoms LTG Duration 05/15/22 Two Impairment Activity tolerance Impairment Oswestry disabiity index score 54% Short Term Goal (STG) Improve JOSELINE score to no greater than 40% as measure of improved activity tolerance STG Duration 04/14/22 Halfway Goal (LTG) Improve OD score to no greater than 25% as measure of improved activity tolerance and quality of life LTG Duration 05/15/22 One Impairment pain lumbar spine, buttock, and right LE as high as 8/10 Halfway Goal (LTG) Pain no greater than 2/10 with all usual activities LTG Duration 05/15/22 Assessment Summary Assessment Some correction of pelvic asymmetry (anterior rotation right with PSIS lower) with manual treatment; feel has some contribution to leg length discrepancy. Patient in high pain level, especially feels after discontinuing Prednisone. Given 2 1/8 cork insert to try in shoe, and instructed to try one, gradually increase wearing time as tolerated. Physical Therapy Plan Frequency and Duration Frequency of Treatment 2x/Week Duration of Treatment 8 wks Plan of Care Start Date 03/13/22 Plan of Care End Date 05/15/22 Next Visit Focus/Plan Next Note Type Treatment Note Next Visit Plan Assure patient has requested referral for orthotpedic shoe with lift, assess response to manual treatment last session. Continue gentle core strengthening, gentle manual therapy as indicated. Trial Sci-Fit to promote symmetrical LE movement (possibly with pad or lift under shoe to compensate for leg length)
--- NOTE | 2022-04-02 09:47 | PT.OTN ---
Current Diagnoses Other chronic pain (04/02/22) Lumbago with sciatica, right side (04/02/22) Abnormal posture (04/02/22) Weakness (04/02/22) Physical Therapy Treatment Note PT-OP-A Visit Information Start: 03/11/22 17:18 Freq: Status: Active Protocol: Document 04/02/22 09:07 SP (Rec: 04/02/22 10:22 SP [id number]) Out-Patient Physical Therapy Visit Information Visit Information Visit Type Treatment Note Visit Start Time 09:07 Visit Stop Time 09:47 Total Visit Minutes 40 Visit Number 4 Number of OBSTETRICS/GYNECOLOGY NURSE Visits 1 Precautions Precautions PMH: L4-5 fusion 25 yrs ago, edna NAJMA and TKA, 3 abdominal surgeries. 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 Has also been told she should wear special shoes because of her c/o leg length discrepancy but hasn't ever worn. Recent exacerbation of pain with no known cause. Pain severely limits her standing tolerance as reports immediate increase in pain with gradual onset of numbness left LE especially her foot. Prior Treatments and Tests lumbar x-ray 07/16/21: There are postsurgical changes of L4 -L5 posterior fixation by means of bilateral rods and pedicle screws with interbody device. There is also been laminectomy at L4 and L5. The hardware appears intact with no abnormal surrounding lucency or other acute complicating hardware feature. No listhesis. Vertebral body heights maintained. Mild-to- moderate multilevel degenerative changes. Treatment Goals Patient/Caregiver Goals minimize pain, be able to do usual activities Prior Functional Status Baseline Function- ADL's Modified Independent Baseline Function- Mobility Modified Independent Baseline Function- Gait independent, no device Baseline Function- Work/School retired Current Functional Impairments (Reported) Functional Limitations- ADL's painful Functional Limitations- Mobility/Gait limited, antalgic PT-OP-C Subjective Start: 03/11/22 17:18 Freq: Status: Active Protocol: Document 04/02/22 09:07 SP (Rec: 04/02/22 10:22 SP [id number]) OP-PT Subjective Patient Comments Patient Comments Pt reported just started back on prednisone yesterday and feels helping with pain control. states is compliant with HEP. Most of her pain when comes to standing R glut into HS and down to calf. Has script for shoe lift but withpain recently hasn't gotten to pick it up. PT-OP-G Mobility & Gait Start: 03/11/22 17:18 Freq: Status: Active Protocol: Document 03/13/22 13:45 SAK (Rec: 03/16/22 09:25 [facility] [id number]) OP Mobility Evaluation Transfers Sit to Stand dec weight bearing right OP Gait Assessment Gait Gait Assistance Required: Independent Assistive Devices Assistive Device None Gait Deviations General Gait Pattern Antalgic PT-OP-H Neuro Start: 03/11/22 17:18 Freq: Status: Active Protocol: Document 03/13/22 13:45 SAK (Rec: 03/16/22 09:25 SAK [id number]) Sensation Evaluation Gross Sensation Gross Sensation Right LE Impaired Sensation Description Numbness,Tingling,Heaviness Location Details Right Distal Lower Extremity Light Touch Impaired PT-OP-J Posture/Palpation/Skin Start: 03/11/22 17:18 Freq: Status: Active Protocol: Document 03/13/22 13:45 SAK (Rec: 03/16/22 09:25 [facility] [id number]) Posture Evaluation Position Standing Head/C-Spine Posture Forward Head T-Spine Posture Increased Kyphosis Thorax Posture (R) Prominent Scapula Posture (L) Protracted,(R) Protracted Pelvis Posture Anteriorly Tilted Hip Posture (R) Externally Rotated Knee Posture (R) Excess Flexion Ankle/Foot Posture (R) Pronated Palpation Assessment Location right buttock Palpation Findings Soft Tissue Tightness,Muscle Guarding,Tenderness right lumbar paraspinals Palpation Findings Soft Tissue Tightness,Muscle Guarding,Tenderness PT-OP-K Range of Motion Start: 03/11/22 17:18 Freq: Status: Active Protocol: Document 03/13/22 13:45 SAK (Rec: 03/16/22 09:25 [facility] [id number]) Lumbar Spine Range of Motion Lumbar Spine Active Testing Position Standing Flexion 25 Extension 10 Rotation Left 20 Rotation Right 15 Lateral Flexion Left 25 Lateral Flexion Right 20 ROM Limitations Soft Tissue Tightness,Bony Restriction,Pain Hip Goniometric Range of Motion Hip Right Flexion w/Knee Flexed 100 Straight Leg Raise 60 Extension 0 Abduction 40 Internal Rotation 10 External Rotation 50 Left Flexion w/Knee Flexed 105 Straight Leg Raise 65 Extension 0 Abduction 40 Internal Rotation 25 External Rotation 70 PT-OP-L Special Tests Start: 03/11/22 17:18 Freq: Status: Active Protocol: Document 03/13/22 13:45 [facility] (Rec: 03/16/22 09:25 SAK [id number]) Special Tests Lumbar Spine Special Tests Manual Traction Test Results positive dec symptoms Compression Test Results positive inc symptoms Straight Leg Raise Test Results negative Passive Neck Flexion Test Results negative Hip Special Tests TERI Test Results negative edna Scour Test Test Results negative edna PT-OP-M Strength Start: 03/11/22 17:18 Freq: Status: Active Protocol: Document 03/13/22 13:45 [facility] (Rec: 03/16/22 09:25 [facility] [id number]) Hip Strength Hip Manual Muscle Testing Right Flexion (L2) 4- Good- Extension (S1) 3+ Fair+ Abduction 4- Good- Adduction 4- Good- External Rotation 4- Good- Internal Rotation 4 Good Left Flexion (L2) 4 Good Extension (S1) 3+ Fair+ Abduction 4- Good- Adduction 4 Good External Rotation 4- Good- Internal Rotation 4- Good- Knee Strength Knee Manual Muscle Testing Right Flexion (S2) 4 Good Extension (L3) 4 Good Comments c/o inc pain Left Flexion (S2) 5 Normal Extension (L3) 5 Normal Ankle/Foot Strength Ankle and Foot Manual Muscle Testing Right Dorsiflexion (L4) 4 Good Plantarflexion (S1) 4 Good Left Dorsiflexion (L4) 4+ Good+ Plantarflexion (S1) 4+ Good+ PT-OP-Q Treatments Start: 03/11/22 17:18 Freq: Status: Active Protocol: Document 04/02/22 09:07 SP (Rec: 04/02/22 10:22 SP [id number]) Therapeutic Exercises Supine Exercises sciatic & peroneal nerve Supine Exercise Name glide- caused increase tingling post in foot Side right Reps/Minutes x10 Comments cued slow pacing AROM ankle TA/TB hip ER Supine Exercise Name reviewed HEP Side bilateral Equipment Used Lev 1 TB Reps/Minutes x20 Comments cued slow pacing painfree range TA/Pillow Sqeeze Supine Exercise Name reviewed HEP Reps/Minutes x20, 5 sec hold Comments good form TA tightening Supine Exercise Name reviewed HEP, then added TA march Reps/Minutes 10 sec hold x5, then added january alternate x5 each LE Comments cued neutral pelvis, slow ascend/descend transition to opp LE- no rocking Sitting Exercises piriformis stretch Sitting Exercise Name reviewed self stretch Side right Reps/Minutes 30 Comments cued straight back hip hinge painfree stretch HS stretch Sitting Exercise Name reviewed self stretch Side right Reps/Minutes 30 Comments cued straight back hip hinge painfree stretch Gait Training Gait Activity wt acceptance Description wt shift into RLE pre gait Device Used 4WW Level of Assistance S Surface firm Treatment Focus WB stability Comments cued straight posture, core fac to allow and awareness of stability before walking and TA fac during gait to support R hip WB stability. Verbalized understanding. Manual Therapy Treatment Soft Tissue Mobilization L LB, leg Body Location L QL, PF, HS, calf Mobilization Type Cross-Friction,Myofascial Release Intensity/Depth Moderate Body Position Prone Comments manual and instructed self ball wall and rolling pin Manual Techniques MET Type for ant rotation right innominate Body Position Supine Reps/Duration 10 Comments resist hip ext 90/90 and hip abd. PT-OP-R Modalities Start: 03/11/22 17:18 Freq: Status: Active Protocol: Document 03/13/22 13:45 SAK (Rec: 03/16/22 09:25 SAK [id number]) Hot Pack/Cold Pack Treatment Cold Pack Location lumbar spine, buttock edna Patient Position Hooklying PT-OP-T Assessment and Plan Start: 03/11/22 17:18 Freq: Status: Active Protocol: Document 04/02/22 09:07 SP (Rec: 04/02/22 10:22 SP [id number]) Physical Therapy Assessment Goals Four Impairment weakness, poor core stabilization Short Term Goal (STG) instruct in HEP with emphasis on core strengthening and stabilization, patient to initiate aquatic exercise STG Duration 03/30/22 Ruby On Rails Software Developer Goal (LTG) Patient to be independent with HEP and aquatic exercise program for purposes of long- term pain management and fitness. LTG Duration 05/15/22 Three Impairment posture, gait Impairment leg length discrepancy affecting postural alignment and gait Ruby On Rails Software Developer Goal (LTG) Patient to be fit with appropriate orthopedic shoe with lift to allow her to improve her standing pstural alignment and tolerate standing and walking for at least 20 min without an increase in her symptoms LTG Duration 05/15/22 Two Impairment Activity tolerance Impairment Oswestry disabiity index score 54% Short Term Goal (STG) Improve JOSELINE score to no greater than 40% as measure of improved activity tolerance STG Duration 04/14/22 Usp Goal (LTG) Improve OD score to no greater than 25% as measure of improved activity tolerance and quality of life LTG Duration 05/15/22 One Impairment pain lumbar spine, buttock, and right LE as high as 8/10 Ruby On Rails Software Developer Goal (LTG) Pain no greater than 2/10 with all usual activities LTG Duration 05/15/22 Assessment Summary Assessment Some correction of pelvic asymmetry (anterior rotation right with PSIS lower) with manual treatment, as PT stated previous tx, some contribution to leg length discrepancy. Pt improved TA facilitation w/occasional cue for slow pacing motion for increased pelvic stabilty, able to incorporate TA SL march with Physical Therapy Plan Frequency and Duration Frequency of Treatment 2x/Week Duration of Treatment 8 wks Plan of Care Start Date 03/13/22 Plan of Care End Date 05/15/22 Therapeutic Interventions Therapeutic Interventions Aquatic Therapy,Home Exercise Program,Manual Therapy, Neuromuscular Re-education, Patient/Caregiver Education, Self-Care/Home Management,Soft Tissue Mobilization,Taping, Therapeutic Activities, Therapeutic Exercises Modalities Cold Pack/Ice Massage,Electric Stimulation,Hot Packs, Traction- Mechanical, Ultrasound Other Therapeutic Interventions gentle with manual or mechanical traction due to fusion Next Visit Focus/Plan Next Note Type Treatment Note Next Visit Plan Assess response to manual treatment last session. Next tx:Trial Sci-Fit to promote symmetrical LE movement ( possibly with pad or lift under shoe to compensate for leg length) POC: Continue gentle core strengthening, gentle manual therapy as indicated.
--- NOTE | 2022-04-07 16:29 | PT.OTN ---
Current Diagnoses Other chronic pain (04/07/22) Lumbago with sciatica, right side (04/07/22) Abnormal posture (04/07/22) Weakness (04/07/22) Physical Therapy Treatment Note PT-OP-A Visit Information Start: 03/11/22 17:18 Freq: Status: Active Protocol: Document 04/07/22 15:16 SAK (Rec: 04/07/22 16:[address] [facility] [id number]) Out-Patient Physical Therapy Visit Information Visit Information Visit Type Treatment Note Visit Start Time 15:16 Visit Stop Time 16:06 Total Visit Minutes 50 Visit Number 5 Number of TELEPHONE CLERK Visits 1 Precautions Precautions PMH: L4-5 fusion 25 yrs ago, edna NAJMA and TKA, 3 abdominal surgeries. PT-OP-B Current Condition Start: 03/11/22 17:18 Freq: Status: Active Protocol: Document 03/13/22 13:45 SAK (Rec: 03/16/22 09:[address] [facility] [id number]) Current Condition History of Current Condition Onset Date 1 month Current Complaints LBP with radicular symptoms right posterior LE History of Current Condition Long history of LBP with reported L45 fusion years ago . Has also been told she should wear special shoes because of her c/o leg length discrepancy but hasn't ever worn. Recent exacerbation of pain with no known cause. Pain severely limits her standing tolerance as reports immediate increase in pain with gradual onset of numbness left LE especially her foot. Prior Treatments and Tests lumbar x-ray 07/16/21: There are postsurgical changes of L4 -L5 posterior fixation by means of bilateral rods and pedicle screws with interbody device. There is also been laminectomy at L4 and L5. The hardware appears intact with no abnormal surrounding lucency or other acute complicating hardware feature. No listhesis. Vertebral body heights maintained. Mild-to- moderate multilevel degenerative changes. Treatment Goals Patient/Caregiver Goals minimize pain, be able to do usual activities Prior Functional Status Baseline Function- ADL's Modified Independent Baseline Function- Mobility Modified Independent Baseline Function- Gait independent, no device Baseline Function- Work/School retired Current Functional Impairments (Reported) Functional Limitations- ADL's painful Functional Limitations- Mobility/Gait limited, antalgic PT-OP-C Subjective Start: 03/11/22 17:18 Freq: Status: Active Protocol: Document 04/07/22 15:16 SAK (Rec: 04/07/22 16:[address] [facility] [id number]) OP-PT Subjective Patient Comments Patient Comments Not severe pain but still pretty bad. Taking Prednisone . Has another OMT treatment . Doctor recommending MRI if PT not helpful. Still not able to stand longer then 1 or 2 minutes due to pain down her right leg into her foot. PT-OP-G Mobility & Gait Start: 03/11/22 17:18 Freq: Status: Active Protocol: Document 03/13/22 13:[address] [facility] (Rec: 03/16/22 09:[address] [facility] [id number]) OP Mobility Evaluation Transfers Sit to Stand dec weight bearing right OP Gait Assessment Gait Gait Assistance Required: Independent Assistive Devices Assistive Device None Gait Deviations General Gait Pattern Antalgic PT-OP-H Neuro Start: 03/11/22 17:18 Freq: Status: Active Protocol: Document 03/13/22 13:[address] [facility] (Rec: 03/16/22 09:[address] [facility] [id number]) Sensation Evaluation Gross Sensation Gross Sensation Right LE Impaired Sensation Description Numbness,Tingling,Heaviness Location Details Right Distal Lower Extremity Light Touch Impaired PT-OP-J Posture/Palpation/Skin Start: 03/11/22 17:18 Freq: Status: Active Protocol: Document 03/13/22 13:[address] [facility] (Rec: 03/16/22 09:[address] [facility] [id number]) Posture Evaluation Position Standing Head/C-Spine Posture Forward Head T-Spine Posture Increased Kyphosis Thorax Posture (R) Prominent Scapula Posture (L) Protracted,(R) Protracted Pelvis Posture Anteriorly Tilted Hip Posture (R) Externally Rotated Knee Posture (R) Excess Flexion Ankle/Foot Posture (R) Pronated Palpation Assessment Location right buttock Palpation Findings Soft Tissue Tightness,Muscle Guarding,Tenderness right lumbar paraspinals Palpation Findings Soft Tissue Tightness,Muscle Guarding,Tenderness PT-OP-K Range of Motion Start: 03/11/22 17:18 Freq: Status: Active Protocol: Document 03/13/22 13:[address] [facility] (Rec: 03/16/22 09:[address] [facility] [id number]) Lumbar Spine Range of Motion Lumbar Spine Active Testing Position Standing Flexion 25 Extension 10 Rotation Left 20 Rotation Right 15 Lateral Flexion Left 25 Lateral Flexion Right 20 ROM Limitations Soft Tissue Tightness,Bony Restriction,Pain Hip Goniometric Range of Motion Hip Right Flexion w/Knee Flexed 100 Straight Leg Raise 60 Extension 0 Abduction 40 Internal Rotation 10 External Rotation 50 Left Flexion w/Knee Flexed 105 Straight Leg Raise 65 Extension 0 Abduction 40 Internal Rotation 25 External Rotation 70 PT-OP-L Special Tests Start: 03/11/22 17:18 Freq: Status: Active Protocol: Document 03/13/22 13:[address] [facility] (Rec: 03/16/22 09:[address] [facility] [id number]) Special Tests Lumbar Spine Special Tests Manual Traction Test Results positive dec symptoms Compression Test Results positive inc symptoms Straight Leg Raise Test Results negative Passive Neck Flexion Test Results negative Hip Special Tests TERI Test Results negative edna Scour Test Test Results negative edna PT-OP-M Strength Start: 03/11/22 17:18 Freq: Status: Active Protocol: Document 03/13/22 13:[address] [facility] (Rec: 03/16/22 09:[address] [facility] [id number]) Hip Strength Hip Manual Muscle Testing Right Flexion (L2) 4- Good- Extension (S1) 3+ Fair+ Abduction 4- Good- Adduction 4- Good- External Rotation 4- Good- Internal Rotation 4 Good Left Flexion (L2) 4 Good Extension (S1) 3+ Fair+ Abduction 4- Good- Adduction 4 Good External Rotation 4- Good- Internal Rotation 4- Good- Knee Strength Knee Manual Muscle Testing Right Flexion (S2) 4 Good Extension (L3) 4 Good Comments c/o inc pain Left Flexion (S2) 5 Normal Extension (L3) 5 Normal Ankle/Foot Strength Ankle and Foot Manual Muscle Testing Right Dorsiflexion (L4) 4 Good Plantarflexion (S1) 4 Good Left Dorsiflexion (L4) 4+ Good+ Plantarflexion (S1) 4+ Good+ PT-OP-Q Treatments Start: 03/11/22 17:18 Freq: Status: Active Protocol: Document 04/07/22 15:[address] [facility] (Rec: 04/07/22 16:[address] [facility] [id number]) Cardio Equipment Recumbent Stepper (Sci-Fit) Duration (Minutes) 10 Resistance 1 Seat Position 10 Other RPM 30, cues for neutral alignment. Therapeutic Exercises Supine Exercises hip flex stretch Reps/Minutes 3x 30 Comments side of plinth, do at end next session /january Reps/Minutes 10x Comments cues for push down through weight-bearing leg with gluteal tightening sciatic & peroneal nerve Supine Exercise Name glide- caused increase tingling post in foot Side right Reps/Minutes x10 Comments cued slow pacing AROM ankle gluteal set Reps/Minutes 10x Comments edna and unil Sitting Exercises sciatic nerve glide Reps/Minutes 10x Gait Training Gait Activity wt acceptance Description wt shift into RLE pre gait Device Used 4WW Level of Assistance cues Surface firm Treatment Focus WB stability Comments cued straight posture, core fac to allow and awareness of stability before walking and TA fac during gait to support R hip WB stability. Verbalized understanding. Manual Therapy Treatment Soft Tissue Mobilization Left quad, hip flex Mobilization Type Myofascial Release,Sustained Pressure Intensity/Depth Moderate Body Position Supine Manual Traction Lumbar Details Strap around distal thigs Body Position Hooklying Reps/Duration 5' Comments gentle Manual Techniques MET Type to correct post rotated innominate Body Position Sidelying Reps/Duration 3 reps x 2 Comments resist hip flex Self-Care/Home Management Treatment Education Other Education given 11/19 cork for further trial leg length correction, instructed to obtain PT-OP-R Modalities Start: 03/11/22 17:18 Freq: Status: Active Protocol: Document 04/07/22 15:[address] [facility] (Rec: 04/07/22 16:[address] [facility] [id number]) Hot Pack/Cold Pack Treatment Cold Pack Comments patient to do at home, ride waiting. Will do ice PT-OP-T Assessment and Plan Start: 03/11/22 17:18 Freq: Status: Active Protocol: Document 04/07/22 15:[address] [facility] (Rec: 04/07/22 16:[address] [facility] [id number]) Physical Therapy Assessment Goals Four Impairment weakness, poor core stabilization Short Term Goal (STG) instruct in HEP with emphasis on core strengthening and stabilization, patient to initiate aquatic exercise STG Duration 03/30/22 Skilled Nursing Goal (LTG) Patient to be independent with HEP and aquatic exercise program for purposes of long- term pain management and fitness. LTG Duration 05/15/22 Three Impairment posture, gait Impairment leg length discrepancy affecting postural alignment and gait Skilled Nursing Goal (LTG) Patient to be fit with appropriate orthopedic shoe with lift to allow her to improve her standing pstural alignment and tolerate standing and walking for at least 20 min without an increase in her symptoms LTG Duration 05/15/22 Two Impairment Activity tolerance Impairment Oswestry disabiity index score 54% Short Term Goal (STG) Improve JOSELINE score to no greater than 40% as measure of improved activity tolerance STG Duration 04/14/22 Key Punch Operator Goal (LTG) Improve OD score to no greater than 25% as measure of improved activity tolerance and quality of life LTG Duration 05/15/22 One Impairment pain lumbar spine, buttock, and right LE as high as 8/10 Skilled Nursing Goal (LTG) Pain no greater than 2/10 with all usual activities LTG Duration 05/15/22 Assessment Summary Assessment Minimal correction with MMT techniques of pelvic assymmetry attained today. Patient has poor awareness of body alignment including when lays supine feels crooked when alignment corrected by PT. Patient reported no pain with use of Sci-Fit, demonstrated improved gait with cues for upright posture and gluteal activation with weight acceptance. Mod tightness left hip flex and quads, will benefit from further manual techniques and stretching. Physical Therapy Plan Frequency and Duration Frequency of Treatment 2x/Week Duration of Treatment 8 wks Plan of Care Start Date 03/13/22 Plan of Care End Date 05/15/22 Therapeutic Interventions Therapeutic Interventions Aquatic Therapy,Home Exercise Program,Manual Therapy, Neuromuscular Re-education, Patient/Caregiver Education, Self-Care/Home Management,Soft Tissue Mobilization,Taping, Therapeutic Activities, Therapeutic Exercises Modalities Cold Pack/Ice Massage,Electric Stimulation,Hot Packs, Traction- Mechanical, Ultrasound Other Therapeutic Interventions gentle with manual or mechanical traction due to fusion Next Visit Focus/Plan Next Note Type Treatment Note Next Visit Plan Assess response to today's treatment including Sci-Fit.
--- NOTE | 2022-04-09 09:50 | PT.OTN ---
Current Diagnoses Other chronic pain (04/09/22) Lumbago with sciatica, right side (04/09/22) Abnormal posture (04/09/22) Weakness (04/09/22) Physical Therapy Treatment Note PT-OP-A Visit Information Start: 03/11/22 17:18 Freq: Status: Active Protocol: Document 04/09/22 09:06 SP (Rec: 04/09/22 09:51 SP [id number]) Out-Patient Physical Therapy Visit Information Visit Information Visit Type Treatment Note Visit Start Time 09:06 Visit Stop Time 09:50 Total Visit Minutes 44 Visit Number 6 Number of RECREATIONAL LEADER Visits 2 Precautions Precautions PMH: L4-5 fusion 25 yrs ago, edna NAJMA and TKA, 3 abdominal surgeries. 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 Has also been told she should wear special shoes because of her c/o leg length discrepancy but hasn't ever worn. Recent exacerbation of pain with no known cause. Pain severely limits her standing tolerance as reports immediate increase in pain with gradual onset of numbness left LE especially her foot. Prior Treatments and Tests lumbar x-ray 07/16/21: There are postsurgical changes of L4 -L5 posterior fixation by means of bilateral rods and pedicle screws with interbody device. There is also been laminectomy at L4 and L5. The hardware appears intact with no abnormal surrounding lucency or other acute complicating hardware feature. No listhesis. Vertebral body heights maintained. Mild-to- moderate multilevel degenerative changes. Treatment Goals Patient/Caregiver Goals minimize pain, be able to do usual activities Prior Functional Status Baseline Function- ADL's Modified Independent Baseline Function- Mobility Modified Independent Baseline Function- Gait independent, no device Baseline Function- Work/School retired Current Functional Impairments (Reported) Functional Limitations- ADL's painful Functional Limitations- Mobility/Gait limited, antalgic PT-OP-C Subjective Start: 03/11/22 17:18 Freq: Status: Active Protocol: Document 04/09/22 09:06 SP (Rec: 04/09/22 09:51 SP [id number]) OP-PT Subjective Patient Comments Patient Comments Pt stated better day yesterday but just before went to bed pain started grabbing R LB into R glut so only thing could do is lay down and let subside appro 5-10 min. Tried HEP but didnt 'help. Has only couple days left of Prednisone , nervous what will be like pain control when gone. Pt reported always little discomfort after PT but subsides in short time. Has MRI ordered, nervous closterphobic so looking for open MRI that allows sedations . PT-OP-G Mobility & Gait Start: 03/11/22 17:18 Freq: Status: Active Protocol: Document 03/13/22 13:45 SAK (Rec: 03/16/22 09:25 SAK [id number]) OP Mobility Evaluation Transfers Sit to Stand dec weight bearing right OP Gait Assessment Gait Gait Assistance Required: Independent Assistive Devices Assistive Device None Gait Deviations General Gait Pattern Antalgic PT-OP-H Neuro Start: 03/11/22 17:18 Freq: Status: Active Protocol: Document 03/13/22 13:45 SAK (Rec: 03/16/22 09:25 SAK [id number]) Sensation Evaluation Gross Sensation Gross Sensation Right LE Impaired Sensation Description Numbness,Tingling,Heaviness Location Details Right Distal Lower Extremity Light Touch Impaired PT-OP-J Posture/Palpation/Skin Start: 03/11/22 17:18 Freq: Status: Active Protocol: Document 03/13/22 13:45 SAK (Rec: 03/16/22 09:25 SAK [id number]) Posture Evaluation Position Standing Head/C-Spine Posture Forward Head T-Spine Posture Increased Kyphosis Thorax Posture (R) Prominent Scapula Posture (L) Protracted,(R) Protracted Pelvis Posture Anteriorly Tilted Hip Posture (R) Externally Rotated Knee Posture (R) Excess Flexion Ankle/Foot Posture (R) Pronated Palpation Assessment Location right buttock Palpation Findings Soft Tissue Tightness,Muscle Guarding,Tenderness right lumbar paraspinals Palpation Findings Soft Tissue Tightness,Muscle Guarding,Tenderness PT-OP-K Range of Motion Start: 03/11/22 17:18 Freq: Status: Active Protocol: Document 03/13/22 13:45 SAK (Rec: 03/16/22 09:25 SAK [id number]) Lumbar Spine Range of Motion Lumbar Spine Active Testing Position Standing Flexion 25 Extension 10 Rotation Left 20 Rotation Right 15 Lateral Flexion Left 25 Lateral Flexion Right 20 ROM Limitations Soft Tissue Tightness,Bony Restriction,Pain Hip Goniometric Range of Motion Hip Right Flexion w/Knee Flexed 100 Straight Leg Raise 60 Extension 0 Abduction 40 Internal Rotation 10 External Rotation 50 Left Flexion w/Knee Flexed 105 Straight Leg Raise 65 Extension 0 Abduction 40 Internal Rotation 25 External Rotation 70 PT-OP-L Special Tests Start: 03/11/22 17:18 Freq: Status: Active Protocol: Document 03/13/22 13:45 SAK (Rec: 03/16/22 09:25 SAK [id number]) Special Tests Lumbar Spine Special Tests Manual Traction Test Results positive dec symptoms Compression Test Results positive inc symptoms Straight Leg Raise Test Results negative Passive Neck Flexion Test Results negative Hip Special Tests TERI Test Results negative edna Scour Test Test Results negative edna PT-OP-M Strength Start: 03/11/22 17:18 Freq: Status: Active Protocol: Document 03/13/22 13:45 [facility] (Rec: 03/16/22 09:25 SAK [id number]) Hip Strength Hip Manual Muscle Testing Right Flexion (L2) 4- Good- Extension (S1) 3+ Fair+ Abduction 4- Good- Adduction 4- Good- External Rotation 4- Good- Internal Rotation 4 Good Left Flexion (L2) 4 Good Extension (S1) 3+ Fair+ Abduction 4- Good- Adduction 4 Good External Rotation 4- Good- Internal Rotation 4- Good- Knee Strength Knee Manual Muscle Testing Right Flexion (S2) 4 Good Extension (L3) 4 Good Comments c/o inc pain Left Flexion (S2) 5 Normal Extension (L3) 5 Normal Ankle/Foot Strength Ankle and Foot Manual Muscle Testing Right Dorsiflexion (L4) 4 Good Plantarflexion (S1) 4 Good Left Dorsiflexion (L4) 4+ Good+ Plantarflexion (S1) 4+ Good+ PT-OP-Q Treatments Start: 03/11/22 17:18 Freq: Status: Active Protocol: Document 04/09/22 09:06 SP (Rec: 04/09/22 09:51 SP [id number]) Cardio Equipment Recumbent Stepper (Sci-Fit) Duration (Minutes) 6 Resistance 1 Seat Position 10 Other RPM 35, cues for neutral alignment. Therapeutic Exercises Supine Exercises sciatic & peroneal nerve Supine Exercise Name glide- caused increase tingling post in foot Side right Reps/Minutes x10 Comments cued slow pacing AROM ankle TA/TB hip ER Supine Exercise Name reviewed HEP- isometric Side bilateral Equipment Used RTB Reps/Minutes 5 sec hold x10 Comments cued slow pacing painfree range Sitting Exercises STS Sitting Exercise Name arms across chest Equipment Used from 4WW Reps/Minutes x5 Comments cued knees apart, full extend and full sit hip hinge piriformis stretch Sitting Exercise Name reviewed self stretch Side right Reps/Minutes 30x2 Comments cued straight back hip hinge painfree stretch HS stretch Sitting Exercise Name reviewed self stretch Side right Reps/Minutes 30 x3 Comments cued straight back hip hinge painfree stretch- ed hold for prox stretch Manual Therapy Treatment Soft Tissue Mobilization L LB, leg Body Location L PF, HS Mobilization Type Cross-Friction,Myofascial Release Intensity/Depth Moderate Body Position Prone Comments manual and instructed self ball seated sustained pressure over prox HS and PF wtih good feedback. Pt states has son's horseshoe and ball automated thumper that helps alot. Manual Techniques MET Type to correct post rotated innominate Body Position Sidelying and supine Reps/Duration 3 reps x 2 Comments resist hip flex and abd with inferior glide of femur head PT-OP-R Modalities Start: 03/11/22 17:18 Freq: Status: Active Protocol: Document 04/07/22 15:16 SAK (Rec: 04/07/22 16:29 SAK [id number]) Hot Pack/Cold Pack Treatment Cold Pack Comments patient to do at home, ride waiting. Will do ice PT-OP-T Assessment and Plan Start: 03/11/22 17:18 Freq: Status: Active Protocol: Document 04/09/22 09:06 SP (Rec: 04/09/22 09:51 SP [id number]) Physical Therapy Assessment Goals Four Impairment weakness, poor core stabilization Short Term Goal (STG) instruct in HEP with emphasis on core strengthening and stabilization, patient to initiate aquatic exercise STG Duration 03/30/22 Fpc Goal (LTG) Patient to be independent with HEP and aquatic exercise program for purposes of long- term pain management and fitness. LTG Duration 05/15/22 Three Impairment posture, gait Impairment leg length discrepancy affecting postural alignment and gait Analytical Data Miner Goal (LTG) Patient to be fit with appropriate orthopedic shoe with lift to allow her to improve her standing pstural alignment and tolerate standing and walking for at least 20 min without an increase in her symptoms LTG Duration 05/15/22 Two Impairment Activity tolerance Impairment Oswestry disabiity index score 54% Short Term Goal (STG) Improve JOSELINE score to no greater than 40% as measure of improved activity tolerance STG Duration 04/14/22 Analytical Data Miner Goal (LTG) Improve OD score to no greater than 25% as measure of improved activity tolerance and quality of life LTG Duration 05/15/22 One Impairment pain lumbar spine, buttock, and right LE as high as 8/10 Fpc Goal (LTG) Pain no greater than 2/10 with all usual activities LTG Duration 05/15/22 Assessment Summary Assessment Pt responded well to manual, review of self stretching and STMs and CP responds better to than MHP for relief and continue muscular HEP to allow stabilizing area for function less/painfree. Pt stated felt better leaving. Physical Therapy Plan Frequency and Duration Frequency of Treatment 2x/Week Duration of Treatment 8 wks Plan of Care Start Date 03/13/22 Plan of Care End Date 05/15/22 Therapeutic Interventions Therapeutic Interventions Aquatic Therapy,Home Exercise Program,Manual Therapy, Neuromuscular Re-education, Patient/Caregiver Education, Self-Care/Home Management,Soft Tissue Mobilization,Taping, Therapeutic Activities, Therapeutic Exercises Modalities Cold Pack/Ice Massage,Electric Stimulation,Hot Packs, Traction- Mechanical, Ultrasound Other Therapeutic Interventions gentle with manual or mechanical traction due to fusion Next Visit Focus/Plan Next Note Type Treatment Note Next Visit Plan Recheck HEP. POC: Start with Sci-Fit for symmetry with reciprocal LE strengthening with good postural support, cues for core activation. Left hip flexor and quad stretching and soft tissue mobilization. Sciatic nerve glides. ASsess pelvic alignment and perform MMT as indicated followed by stabilization ex.
--- NOTE | 2022-04-17 07:40 | PT-OP ANOTE ---
Pt cancelled today's appt, last minute Dr appt added and conflicted with PT appt. Pt only has 2 more appts, PT to assess if need PN and more appts added next tx.
--- NOTE | 2022-04-21 10:19 | PT.OTN ---
Current Diagnoses Other chronic pain (04/21/22) Lumbago with sciatica, right side (04/21/22) Abnormal posture (04/21/22) Weakness (04/21/22) Physical Therapy Treatment Note PT-OP-A Visit Information Start: 03/11/22 17:18 Freq: Status: Active Protocol: Document 04/21/22 09:03 SAK (Rec: 04/21/22 10:19 SAK [id number]) Out-Patient Physical Therapy Visit Information Visit Information Visit Type Treatment Note Visit Start Time 09:01 Visit Stop Time 09:50 Total Visit Minutes 44 Visit Number 7 Number of SHIELD CLEANER Visits 0 Precautions Precautions PMH: L4-5 fusion 25 yrs ago, edna NAJMA and TKA, 3 abdominal surgeries. 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 Has also been told she should wear special shoes because of her c/o leg length discrepancy but hasn't ever worn. Recent exacerbation of pain with no known cause. Pain severely limits her standing tolerance as reports immediate increase in pain with gradual onset of numbness left LE especially her foot. Prior Treatments and Tests lumbar x-ray 07/16/21: There are postsurgical changes of L4 -L5 posterior fixation by means of bilateral rods and pedicle screws with interbody device. There is also been laminectomy at L4 and L5. The hardware appears intact with no abnormal surrounding lucency or other acute complicating hardware feature. No listhesis. Vertebral body heights maintained. Mild-to- moderate multilevel degenerative changes. Treatment Goals Patient/Caregiver Goals minimize pain, be able to do usual activities Prior Functional Status Baseline Function- ADL's Modified Independent Baseline Function- Mobility Modified Independent Baseline Function- Gait independent, no device Baseline Function- Work/School retired Current Functional Impairments (Reported) Functional Limitations- ADL's painful Functional Limitations- Mobility/Gait limited, antalgic PT-OP-C Subjective Start: 03/11/22 17:18 Freq: Status: Active Protocol: Document 04/21/22 09:03 SAK (Rec: 04/21/22 10:19 [facility] [id number]) OP-PT Subjective Patient Comments Patient Comments Patient reports she had open MRI in [place], has bulging cyst in her spine. Is currently on hold to talk with Dr. Amin's office regarding scheduling an appointment. States she is doing better, Prednisone was left on 10 mg. Reports feels cork in shoe is helping. States use of son's massager on right LB feels good at the time, worse after. PT-OP-G Mobility & Gait Start: 03/11/22 17:18 Freq: Status: Active Protocol: Document 03/13/22 13:45 [facility] (Rec: 03/16/22 09:25 [facility] [id number]) OP Mobility Evaluation Transfers Sit to Stand dec weight bearing right OP Gait Assessment Gait Gait Assistance Required: Independent Assistive Devices Assistive Device None Gait Deviations General Gait Pattern Antalgic PT-OP-H Neuro Start: 03/11/22 17:18 Freq: Status: Active Protocol: Document 03/13/22 13:45 [facility] (Rec: 03/16/22 09:25 [facility] [id number]) Sensation Evaluation Gross Sensation Gross Sensation Right LE Impaired Sensation Description Numbness,Tingling,Heaviness Location Details Right Distal Lower Extremity Light Touch Impaired PT-OP-J Posture/Palpation/Skin Start: 03/11/22 17:18 Freq: Status: Active Protocol: Document 03/13/22 13:45 [facility] (Rec: 03/16/22 09:25 [facility] [id number]) Posture Evaluation Position Standing Head/C-Spine Posture Forward Head T-Spine Posture Increased Kyphosis Thorax Posture (R) Prominent Scapula Posture (L) Protracted,(R) Protracted Pelvis Posture Anteriorly Tilted Hip Posture (R) Externally Rotated Knee Posture (R) Excess Flexion Ankle/Foot Posture (R) Pronated Palpation Assessment Location right buttock Palpation Findings Soft Tissue Tightness,Muscle Guarding,Tenderness right lumbar paraspinals Palpation Findings Soft Tissue Tightness,Muscle Guarding,Tenderness PT-OP-K Range of Motion Start: 03/11/22 17:18 Freq: Status: Active Protocol: Document 03/13/22 13:45 [facility] (Rec: 03/16/22 09:25 [facility] [id number]) Lumbar Spine Range of Motion Lumbar Spine Active Testing Position Standing Flexion 25 Extension 10 Rotation Left 20 Rotation Right 15 Lateral Flexion Left 25 Lateral Flexion Right 20 ROM Limitations Soft Tissue Tightness,Bony Restriction,Pain Hip Goniometric Range of Motion Hip Right Flexion w/Knee Flexed 100 Straight Leg Raise 60 Extension 0 Abduction 40 Internal Rotation 10 External Rotation 50 Left Flexion w/Knee Flexed 105 Straight Leg Raise 65 Extension 0 Abduction 40 Internal Rotation 25 External Rotation 70 PT-OP-L Special Tests Start: 03/11/22 17:18 Freq: Status: Active Protocol: Document 03/13/22 13:45 [facility] (Rec: 03/16/22 09:25 [facility] [id number]) Special Tests Lumbar Spine Special Tests Manual Traction Test Results positive dec symptoms Compression Test Results positive inc symptoms Straight Leg Raise Test Results negative Passive Neck Flexion Test Results negative Hip Special Tests TERI Test Results negative edna Scour Test Test Results negative edna PT-OP-M Strength Start: 03/11/22 17:18 Freq: Status: Active Protocol: Document 03/13/22 13:45 [facility] (Rec: 03/16/22 09:25 [facility] [id number]) Hip Strength Hip Manual Muscle Testing Right Flexion (L2) 4- Good- Extension (S1) 3+ Fair+ Abduction 4- Good- Adduction 4- Good- External Rotation 4- Good- Internal Rotation 4 Good Left Flexion (L2) 4 Good Extension (S1) 3+ Fair+ Abduction 4- Good- Adduction 4 Good External Rotation 4- Good- Internal Rotation 4- Good- Knee Strength Knee Manual Muscle Testing Right Flexion (S2) 4 Good Extension (L3) 4 Good Comments c/o inc pain Left Flexion (S2) 5 Normal Extension (L3) 5 Normal Ankle/Foot Strength Ankle and Foot Manual Muscle Testing Right Dorsiflexion (L4) 4 Good Plantarflexion (S1) 4 Good Left Dorsiflexion (L4) 4+ Good+ Plantarflexion (S1) 4+ Good+ PT-OP-Q Treatments Start: 03/11/22 17:18 Freq: Status: Active Protocol: Document 04/21/22 09:03 [facility] (Rec: 04/21/22 10:19 [facility] [id number]) Cardio Equipment Recumbent Stepper (Sci-Fit) Duration (Minutes) 6 Resistance 1 Seat Position 10 Other RPM 35, cues for neutral alignment. Therapeutic Exercises Supine Exercises hip flex stretch Reps/Minutes 3x 30 Comments side of plinth, do at end next session TA tightening Supine Exercise Name reviewed HEP, then added TA january Reps/Minutes 10 sec hold x5, then added january alternate x5 each LE Comments cued neutral pelvis, slow ascend/descend transition to opp LE- no rocking Sitting Exercises HS stretch Sitting Exercise Name reviewed self stretch Side bilateral Reps/Minutes 30 x2 Comments cued straight back hip hinge painfree stretch- ed hold for prox stretch Manual Therapy Treatment Soft Tissue Mobilization Left quad, hip flex Mobilization Type Myofascial Release,Sustained Pressure Intensity/Depth Moderate Body Position Supine L LB, leg Body Location L quads, IT band Mobilization Type Instrument Assisted,Myofascial Release Intensity/Depth Moderate Body Position Prone Self-Care/Home Management Treatment Education Patient Education Home Exercise Program,Posture Other Education bed positioning for positional relief, spinal support: right sidelying with pillow at waist, pillow between knees, 90:90 positioning supine, supine pillows under knees and thighs. Reports improvement in symptoms PT-OP-R Modalities Start: 03/11/22 17:18 Freq: Status: Active Protocol: Document 04/21/22 09:03 [facility] (Rec: 04/21/22 10:19 [facility] [id number]) Hot Pack/Cold Pack Treatment Cold Pack Comments patient to do at home, ride waiting. Will do ice PT-OP-T Assessment and Plan Start: 03/11/22 17:18 Freq: Status: Active Protocol: Document 04/21/22 09:03 [facility] (Rec: 04/21/22 10:19 [facility] [id number]) Physical Therapy Assessment Goals Four Impairment weakness, poor core stabilization Short Term Goal (STG) instruct in HEP with emphasis on core strengthening and stabilization, patient to initiate aquatic exercise STG Duration 03/30/22 Custodial Goal (LTG) Patient to be independent with HEP and aquatic exercise program for purposes of long- term pain management and fitness. LTG Duration 05/15/22 Three Impairment posture, gait Impairment leg length discrepancy affecting postural alignment and gait Custodial Goal (LTG) Patient to be fit with appropriate orthopedic shoe with lift to allow her to improve her standing pstural alignment and tolerate standing and walking for at least 20 min without an increase in her symptoms LTG Duration 05/15/22 Two Impairment Activity tolerance Impairment Oswestry disabiity index score 54% Short Term Goal (STG) Improve JOSELINE score to no greater than 40% as measure of improved activity tolerance STG Duration 04/14/22 Custodial Goal (LTG) Improve OD score to no greater than 25% as measure of improved activity tolerance and quality of life LTG Duration 05/15/22 One Impairment pain lumbar spine, buttock, and right LE as high as 8/10 Care Services Manager Goal (LTG) Pain no greater than 2/10 with all usual activities LTG Duration 05/15/22 Assessment Summary Assessment Patient reports diagnosis of L5-S1 bulging cyst, had MRI in [place], results not available to PT today. Made appointment with Dr. Amin for 04/29 while in PT today. Improved standing and walking alignment. Benefits from use of cork in shoe. After manual work and hip flexor stretching pelvis level. Patient reports some relief of symptoms with the sidelying ( gapping), 90:90 positioning, and supine supported. Physical Therapy Plan Frequency and Duration Frequency of Treatment 2x/Week Duration of Treatment 8 wks Plan of Care Start Date 03/13/22 Plan of Care End Date 05/15/22 Therapeutic Interventions Therapeutic Interventions Aquatic Therapy,Home Exercise Program,Manual Therapy, Neuromuscular Re-education, Patient/Caregiver Education, Self-Care/Home Management,Soft Tissue Mobilization,Taping, Therapeutic Activities, Therapeutic Exercises Modalities Cold Pack/Ice Massage,Electric Stimulation,Hot Packs, Traction- Mechanical, Ultrasound Other Therapeutic Interventions gentle with manual or mechanical traction due to fusion Next Visit Focus/Plan Next Note Type Treatment Note Next Visit Plan Assess response to today's session. POC: Start with Sci-Fit for symmetry with reciprocal LE strengthening with good postural support, cues for core activation. Left hip flexor and quad stretching and soft tissue mobilization. Sciatic nerve glides. ASsess pelvic alignment and perform MMT as indicated followed by stabilization ex.
--- NOTE | 2022-04-23 08:10 | PT-OP ANOTE ---
Pt televox response cancelled today's appt.
--- NOTE | 2023-05-25 11:50 | PT.OPDS ---
Current Diagnoses Other chronic pain (04/21/22) Lumbago with sciatica, right side (04/21/22) Abnormal posture (04/21/22) Weakness (04/21/22) Visit Care Team Role Provider Type Adan Gary MD Family Provider Non-Staff Primary Care Provider Specialty: Medical Address: [facility], [address] [place] [address], [id number] Email: Claire Zhang DO Attending Provider Non-Staff Referring Provider Specialty: Medical Address: [address] [place] [address], [id number] Email: Visit Number Visit Number 7 Discharge Summary PT-OP-B Current Condition Start: 03/11/22 17:18 Freq: Status: Active Protocol: Document 03/13/22 13:45 SAK (Rec: 03/16/22 09:25 SAK [id number]) Current Condition History of Current Condition Onset Date 1 month Current Complaints LBP with radicular symptoms right posterior LE History of Current Condition Long history of LBP with reported L45 fusion years ago . Has also been told she should wear special shoes because of her c/o leg length discrepancy but hasn't ever worn. Recent exacerbation of pain with no known cause. Pain severely limits her standing tolerance as reports immediate increase in pain with gradual onset of numbness left LE especially her foot. Prior Treatments and Tests lumbar x-ray 07/16/21: There are postsurgical changes of L4 -L5 posterior fixation by means of bilateral rods and pedicle screws with interbody device. There is also been laminectomy at L4 and L5. The hardware appears intact with no abnormal surrounding lucency or other acute complicating hardware feature. No listhesis. Vertebral body heights maintained. Mild-to- moderate multilevel degenerative changes. Treatment Goals Patient/Caregiver Goals minimize pain, be able to do usual activities Prior Functional Status Baseline Function- ADL's Modified Independent Baseline Function- Mobility Modified Independent Baseline Function- Gait independent, no device Baseline Function- Work/School retired Current Functional Impairments (Reported) Functional Limitations- ADL's painful Functional Limitations- Mobility/Gait limited, antalgic PT-OP-C Subjective Start: 03/11/22 17:18 Freq: Status: Active Protocol: Document 04/21/22 09:03 [facility] (Rec: 04/21/22 10:19 [facility] [id number]) OP-PT Subjective Patient Comments Patient Comments Patient reports she had open MRI in [place], has bulging cyst in her spine. Is currently on hold to talk with Dr. Amin's office regarding scheduling an appointment. States she is doing better, Prednisone was left on 10 mg. Reports feels cork in shoe is helping. States use of son's massager on right LB feels good at the time, worse after. PT-OP-G Mobility & Gait Start: 03/11/22 17:18 Freq: Status: Active Protocol: Document 03/13/22 13:45 [facility] (Rec: 03/16/22 09:25 [facility] [id number]) OP Mobility Evaluation Transfers Sit to Stand dec weight bearing right OP Gait Assessment Gait Gait Assistance Required: Independent Assistive Devices Assistive Device None Gait Deviations General Gait Pattern Antalgic PT-OP-H Neuro Start: 03/11/22 17:18 Freq: Status: Active Protocol: Document 03/13/22 13:45 [facility] (Rec: 03/16/22 09:25 [facility] [id number]) Sensation Evaluation Gross Sensation Gross Sensation Right LE Impaired Sensation Description Numbness,Tingling,Heaviness Location Details Right Distal Lower Extremity Light Touch Impaired PT-OP-J Posture/Palpation/Skin Start: 03/11/22 17:18 Freq: Status: Active Protocol: Document 03/13/22 13:45 [facility]AK (Rec: 03/16/22 09:25 [facility] [id number]) Posture Evaluation Position Standing Head/C-Spine Posture Forward Head T-Spine Posture Increased Kyphosis Thorax Posture (R) Prominent Scapula Posture (L) Protracted,(R) Protracted Pelvis Posture Anteriorly Tilted Hip Posture (R) Externally Rotated Knee Posture (R) Excess Flexion Ankle/Foot Posture (R) Pronated Palpation Assessment Location right buttock Palpation Findings Soft Tissue Tightness,Muscle Guarding,Tenderness right lumbar paraspinals Palpation Findings Soft Tissue Tightness,Muscle Guarding,Tenderness PT-OP-K Range of Motion Start: 03/11/22 17:18 Freq: Status: Active Protocol: Document 03/13/22 13:45 [facility] (Rec: 03/16/22 09:25 [facility] [id number]) Lumbar Spine Range of Motion Lumbar Spine Active Testing Position Standing Flexion 25 Extension 10 Rotation Left 20 Rotation Right 15 Lateral Flexion Left 25 Lateral Flexion Right 20 ROM Limitations Soft Tissue Tightness,Bony Restriction,Pain Hip Goniometric Range of Motion Hip Right Flexion w/Knee Flexed 100 Straight Leg Raise 60 Extension 0 Abduction 40 Internal Rotation 10 External Rotation 50 Left Flexion w/Knee Flexed 105 Straight Leg Raise 65 Extension 0 Abduction 40 Internal Rotation 25 External Rotation 70 PT-OP-L Special Tests Start: 03/11/22 17:18 Freq: Status: Active Protocol: Document 03/13/22 13:45 [facility] (Rec: 03/16/22 09:25 [facility] [id number]) Special Tests Lumbar Spine Special Tests Manual Traction Test Results positive dec symptoms Compression Test Results positive inc symptoms Straight Leg Raise Test Results negative Passive Neck Flexion Test Results negative Hip Special Tests TERI Test Results negative edna Scour Test Test Results negative edna PT-OP-M Strength Start: 03/11/22 17:18 Freq: Status: Active Protocol: Document 03/13/22 13:45 [facility] (Rec: 03/16/22 09:25 [facility] [id number]) Hip Strength Hip Manual Muscle Testing Right Flexion (L2) 4- Good- Extension (S1) 3+ Fair+ Abduction 4- Good- Adduction 4- Good- External Rotation 4- Good- Internal Rotation 4 Good Left Flexion (L2) 4 Good Extension (S1) 3+ Fair+ Abduction 4- Good- Adduction 4 Good External Rotation 4- Good- Internal Rotation 4- Good- Knee Strength Knee Manual Muscle Testing Right Flexion (S2) 4 Good Extension (L3) 4 Good Comments c/o inc pain Left Flexion (S2) 5 Normal Extension (L3) 5 Normal Ankle/Foot Strength Ankle and Foot Manual Muscle Testing Right Dorsiflexion (L4) 4 Good Plantarflexion (S1) 4 Good Left Dorsiflexion (L4) 4+ Good+ Plantarflexion (S1) 4+ Good+ PT-OP-T Assessment and Plan Start: 03/11/22 17:18 Freq: Status: Active Protocol: Document 05/25/23 11:50 [facility] (Rec: 05/25/23 11:50 [facility] [id number]) Physical Therapy Plan Discharge Physical Therapy Discharge Reasons No Longer Attending PT
== END | disposition home or self-care (01) ==
LOC: PHYS 03-13 13:13
PROVIDERS: Family Provider Student in an Organized Health Care Education/Training Program; PCP Student in an Organized Health Care Education/Training Program; Referring Provider Family Medicine; Visit Provider Family Medicine
DX: M54.41 Lumbago with sciatica, right side (principal); G89.29 Other chronic pain; R29.3 Abnormal posture; R53.1 Weakness
CPT/HCPCS: 97110; 97140; 97162; 97535

== ENCOUNTER 2023-11-24 13:20 | Emergency (ER) | payer MEDICARE, MEDICAID, SELFPAY ==
[2023-11-24 13:22] VITALS: BP 168/76; PULSE 79; RESP 18; TEMP 37.3; O2SAT 97; BMI 29.0
[2023-11-24 14:17] LABS: Influenza A - CEPHEID Flu A NEGATIVE (NEGATIVE); Influenza B - CEPHEID Flu B NEGATIVE (NEGATIVE); Respiratory Syncytial Virus Negative (Negative)
[2023-11-24 14:19] LABS: COVID-19 CEPHEID 4-PLEX PCR Negative (Negative)
--- NOTE | 2023-11-24 14:44 | DI.RAD.S_ITS ---
PROCEDURE: XR CHEST 2V INDICATIONS: cough TECHNIQUE: 2 views of the chest were acquired. COMPARISON: [facility], CR, XR CHEST 1V, 03/07/2021, 11:26. FINDINGS: Surgical changes and devices: None. Lungs and pleura: Lungs are clear. No pleural effusions or pneumothorax. Mediastinum: Mediastinal contours are normal. Heart size is normal. Bones and chest wall: No suspicious bony abnormalities. Soft tissues appear unremarkable. IMPRESSION: No acute cardiopulmonary abnormality is seen. Dictated by: Toby Jimenez M.D. on 11/24/2023 at 15:04 Approved by: Toby Jimenez M.D. on 11/24/2023 at 15:05
--- NOTE | 2023-11-24 14:48 | ED_ITS ---
HPI - URI/Sore Throat <Gordo Mike PA-C - Last Filed: 11/24/23 15:54> General Chief Complaint: Upper Respiratory Symptoms Stated Complaint: sob/chest hurts/phlem syptoms apx 1wk covid test - Time Seen by Provider: 11/24/23 13:38 Source: patient Mode of arrival: Ambulatory History of Present Illness HPI Narrative: 72-year-old female with past medical history osteoarthritis, hypertension presents to the ED with 5 days of upper respiratory symptoms. Patient endorses fever, nasal congestion, cough. Denies chills, chest pain, shortness of breath, nausea, vomiting, diarrhea, lightheadedness, dizziness, syncope. Patient states that she has had pneumonia in the past from URIs. Patient did a home test for COVID-19 which was negative. Patient has tried some uomr-xrb-roatynn remedies for cough with good relief. Related Data Home Medications Medication Instructions Recorded Confirmed amlodipine 10 mg tablet (Norvasc) 03/07/21 07/16/21 benazepril 40 mg tablet 40 mg PO DAILY 03/14/21 07/16/21 buprenorphine 4 mg-naloxone 1 mg 1 film sublingual BID 03/14/21 07/16/21 sublingual film (Suboxone) naproxen 500 mg tablet 500 mg PO BID 03/14/21 07/16/21 pantoprazole 40 mg tablet,delayed 40 mg PO DAILY 03/14/21 07/16/21 release Previous Rx's Medication Instructions Recorded carvedilol 12.5 mg tablet 12.5 mg PO BID #180 tabs 04/17/21 zolpidem 5 mg tablet 5 mg PO BEDTIME #30 tabs 05/24/21 DISABLED PARKING PERMIT #1 ea 07/16/21 cyclobenzaprine 10 mg tablet 10 mg PO BEDTIME #7 tabs 02/21/22 benzonatate 200 mg capsule 200 mg PO TID PRN cough #30 caps 11/24/23 Allergies Allergy/AdvReac Type Severity Reaction Status Date / Time Penicillins Allergy Hives Verified 02/21/22 12:07 Review of Systems <Gordo Mike PA-C - Last Filed: 11/24/23 15:54> Constitutional Constitutional: Denies chills, Denies fatigue, Reports fever(s), Denies frequent falls, Denies lethargy and Denies weakness Eyes Eyes: Denies change in vision, Denies eye discharge, Denies irritation and Denies loss of vision ENT Ears, Nose, Mouth, and Throat: Denies change in voice, Denies dizziness, Reports nasal congestion, Reports nasal discharge, Denies neck pain, Denies sore throat and Denies throat swelling Cardiovascular Cardiovascular: Denies chest pain, Denies irregular heart rhythm, Denies lightheadedness, Denies palpitations, Denies dyspnea, Denies dyspnea on exertion and Denies orthopnea Respiratory Respiratory: Reports cough, Denies dyspnea, Denies dyspnea on exertion and Denies wheezing Gastrointestinal Gastrointestinal: Denies abdominal pain, Denies change in bowel habits, Denies diarrhea, Denies nausea and Denies vomiting Musculoskeletal Musculoskeletal: Denies neck pain and Denies numbness Integumentary/Breasts Skin/Breast: Denies pruritus, Denies erythema, Denies rash and Denies wounds Neurologic Neurologic: Denies behavioral changes, Denies confusion, Denies dizziness, Denies frequent falls, Denies loss of vision, Denies numbness and Denies weakness Psychiatric Psychiatric: Denies anxiety, Denies behavioral changes, Denies confusion, Denies depression, Denies homicidal ideation and Denies suicidal ideation Endocrine Endocrine: Denies fatigue, Denies flushing and Denies palpitations Hematologic/Lymphatic Hematologic/Lymphatic: Denies easy bruising Allergic/Immunologic Allergic/Immunologic: Denies urticaria, Denies throat swelling and Denies wheezing Patient History <Gordo Mike PA-C - Last Filed: 11/24/23 15:54> Medical History H/O intravenous drug use in remission Vision disorder Eczema Osteoarthritis Chronic back pain (~2004) Hearing loss (~2017) Kidney stones (~2004) Hypertension (~2010) Uterine cancer (~1977) Surgical History Anesthesia History of knee surgery History of hip replacement History of hernia repair History of cholecystectomy History of gastric bypass History of spinal fusion Family History Father Cancer Mother Cirrhosis Grandfather History of heart disease Grandfather Cancer Grandmother Cancer Social History Smoking Status: Never smoker Smoking Status: Never smoker Substance Use Type: does not use Exam <Gordo Mike PA-C - Last Filed: 11/24/23 15:54> Narrative Exam Narrative: Const General:?cooperative, healthy appearing and comfortable HENGA Head:?normal to inspection Ears:?hearing grossly normal bilaterally Nose:?external nose normal Face and sinus:?normal facial exam and sinuses nontender Mouth:?oral mucosae normal Throat:?posterior oropharynx normal Eyes General:?appearance normal, both eyes and all related structures Neck Neck:?normal visual inspection and no lymphadenopathy noted Resp Effort & Inspection:?normal respiratory effort Auscultation:?clear to auscultation bilaterally Cardio Rate:?regular rate Rhythm:?regular rhythm Neuro General:?patient alert, patient awake and patient oriented x3 Initial Vital Signs Initial Vital Signs: Vital Signs Temperature 99.1 F 11/24/23 13:22 Pulse Rate 79 11/24/23 13:22 Respiratory Rate 18 11/24/23 13:22 Blood Pressure 168/76 H 11/24/23 13:22 Pulse Oximetry 97 11/24/23 13:22 Oxygen Delivery Method Room Air 11/24/23 13:22 <Derek Wilhelm MD - Last Filed: 11/24/23 18:49> Initial Vital Signs Initial Vital Signs: Vital Signs Temperature 99.1 F 11/24/23 13:22 Pulse Rate 79 11/24/23 13:22 Respiratory Rate 18 11/24/23 13:22 Blood Pressure 168/76 H 11/24/23 13:22 Pulse Oximetry 97 11/24/23 13:22 Oxygen Delivery Method Room Air 11/24/23 13:22 Course <Gordo Mike PA-C - Last Filed: 11/24/23 15:54> Orders Ordered: ED Orders 11/24/23 13:29 Covid-19 + FLU A/B + RSV - PCR Stat 11/24/23 13:34 EKG-12 Lead Stat 11/24/23 14:44 CXR [XR chest 2V] Stat Vital Signs Vital signs: Vital Signs - 8 hr 11/24/23 13:22 11/24/23 14:55 Temperature 99.1 F Pulse Rate 79 75 Respiratory Rate 18 16 Blood Pressure 168/76 H 156/74 H Pulse Oximetry 97 95 Oxygen Delivery Method Room Air Room Air <Derek Wilhelm MD - Last Filed: 11/24/23 18:49> Orders Ordered: ED Orders 11/24/23 13:29 Covid-19 + FLU A/B + RSV - PCR Stat 11/24/23 13:34 EKG-12 Lead Stat 11/24/23 14:44 CXR [XR chest 2V] Stat Vital Signs Vital signs: Vital Signs - 8 hr 11/24/23 13:22 11/24/23 14:55 Temperature 99.1 F Pulse Rate 79 75 Respiratory Rate 18 16 Blood Pressure 168/76 H 156/74 H Pulse Oximetry 97 95 Oxygen Delivery Method Room Air Room Air MDM - URI/Sore Throat <Gordo Mike PA-C - Last Filed: 11/24/23 15:54> Lab Data Labs: Lab Results 11/24/23 Range/Units 13:29 SARS-CoV-2 (PCR) Negative (Negative) Influenza A (RT-PCR) Flu a negative (NEGATIVE) Influenza B (RT-PCR) Flu b negative (NEGATIVE) RSV (PCR) Negative (Negative) MDM Narrative Medical decision making narrative: 72-year-old female with past medical history osteoarthritis, hypertension pre sents to the ED with 5 days of upper respiratory symptoms. Concern for viral URI versus pneumonia versus other. Will obtain respiratory swab, chest x-ray, EKG. Will reassess. Respiratory swab negative for COVID-19, influenza, RSV. Chest x-ray without acute findings. EKG without acute findings. No acute ST-T changes. Patient's symptoms likely due to a viral URI. Discussed findings with patient. Recommend [id number]-[id number] cough medications, Tylenol, ibuprofen. Also prescribed Tessalon Perles for cough. Recommend follow-up with PCP as soon as possible. ED return precautions discussed with patient. Patient verbalized understanding. Medical records reviewed: Yes <Derek Wilhelm MD - Last Filed: 11/24/23 18:49> Lab Data Labs: Lab Results 11/24/23 Range/Units 13:29 SARS-CoV-2 (PCR) Negative (Negative) Influenza A (RT-PCR) Flu a negative (NEGATIVE) Influenza B (RT-PCR) Flu b negative (NEGATIVE) RSV (PCR) Negative (Negative) MDM Narrative Medical decision making narrative: 72-year-old female with past medical history osteoarthritis, hypertension presents to the ED with 5 days of upper respiratory symptoms. Concern for viral URI versus pneumonia versus other. Will obtain respiratory swab, chest x-ray, EKG. Will reassess. Respiratory swab negative for COVID-19, influenza, RSV. Chest x-ray without acute findings. EKG without acute findings. No acute ST-T changes. Patient's symptoms likely due to a viral URI. Discussed findings with patient. Recommend [id number]-[id number] cough medications, Tylenol, ibuprofen. Also prescribed Tessalon Perles for cough. Recommend follow-up with PCP as soon as possible. ED return precautions discussed with patient. Patient verbalized understanding. Medical records reviewed: Yes I was immediately available in the department for consultation. Documentation has been reviewed. I agree with assessment and plan. Discharge Plan Departure Patient Disposition: Home Clinical Impression: URI (upper respiratory infection) Qualifiers: URI type: unspecified viral URI Qualified Code(s): J06.9 - Acute upper respiratory infection, unspecified Instructions: DI for Viral Upper Respiratory Infection -- Adult Activity Restrictions/Additional Instructions: You were evaluated in the ED today for a cough. Your chest x-ray was normal. You tested negative for COVID-19, influenza, RSV. Your EKG was normal. It appears that you have a viral upper respiratory infection that is causing your symptoms. You have been prescribed Tessalon Perles for your cough. You may also take Robitussin, Mucinex or Delsym which are gdvh-[id number]-jlxxxrd for the cough. You may take Tylenol, ibuprofen for aches and pains and fevers. Please continue to stay well hydrated. Return to the ED if you have worsening symptoms, chest pain, shortness of breath. Prescriptions: New benzonatate 200 mg capsule 200 mg PO TID PRN (Reason: cough) Qty: 30 0RF No Action carvedilol 12.5 mg tablet 12.5 mg PO BID Qty: 180 3RF Rx Instructions: must administer with a meal/food zolpidem 5 mg tablet 5 mg PO BEDTIME Qty: 30 3RF Hold Instructions: Change to 10mg #20 with next fill. benazepril 40 mg tablet 40 mg PO DAILY pantoprazole 40 mg tablet,delayed release (DR/EC) 40 mg PO DAILY naproxen 500 mg tablet 500 mg PO BID buprenorphine-naloxone [Suboxone] 4-1 mg film 1 film sublingual BID (DME) DISABLED PARKING PERMIT See Rx Instructions .ROUTE .MEDSUPPLY Qty: 1 0RF Rx Instructions: I FIND THIS PATIENT TO BE MEDICALLY DISABLED AND QUALIFIED FOR DISABLE PARKING INDICATED, AND SIGNED ON THE ACCOMPANYING [employer] APPLICATION FOR INDIVIDUALS amlodipine [Norvasc] 10 mg Tablet cyclobenzaprine 10 mg tablet 10 mg PO BEDTIME Qty: 7 0RF Referrals: Adan Gary MD [Primary Care Provider] - Stand Alone Forms: Patient Portal/API
--- NOTE | 2023-11-24 14:54 | PC.NURSE ---
Pt seen and assessed by provider before RN able to assess pt.
[2023-11-24 14:55] VITALS: BP 156/74; PULSE 75; RESP 16; O2SAT 95
== END 2023-11-24 15:55 | disposition home or self-care (01) ==
PROVIDERS: Emergency Medicine; Emergency Provider Student in an Organized Health Care Education/Training Program; Family Provider Student in an Organized Health Care Education/Training Program; PCP Student in an Organized Health Care Education/Training Program
DX: J06.9 Acute upper respiratory infection, unspecified (principal); R05.9 Cough, unspecified; Z20.822 Contact with and (suspected) exposure to COVID-19; I10 Essential (primary) hypertension
CPT/HCPCS: 0241U; 71046; 93005; 93010; 99281; 99284

== ENCOUNTER 2023-12-22 12:08 | Emergency (ER) | payer MEDICARE, MEDICAID, SELFPAY ==
[2023-12-22 12:19] VITALS: BP 148/69; PULSE 75; RESP 18; TEMP 36.6; O2SAT 99; BMI 29.0
[2023-12-22 13:16] VITALS: BP 121/64; PULSE 71; RESP 16; O2SAT 96
--- NOTE | 2023-12-22 14:15 | ED_ITS ---
HPI - Ear Problem <Gordo Mike PA-C - Last Filed: 12/22/23 14:20> General Chief complaint: Ear Stated complaint: ear pain Time Seen by Provider: 12/22/23 12:31 Source: patient Mode of arrival: Ambulatory History of Present Illness HPI Narrative: 72-year-old female with past medical history osteoarthritis, anxiety, hypertension presents to the ED with 3 days of right-sided ear and face pain. Patient states that she got over a 4 week long cold and started experiencing this right-sided ear and face pain. Patient denies fever, chills, chest pain, shortness of breath, changes in hearing, lightheadedness, dizziness, syncope. Related Data Home Medications Medication Instructions Recorded Confirmed amlodipine 10 mg tablet (Norvasc) 03/07/21 07/16/21 benazepril 40 mg tablet 40 mg PO DAILY 03/14/21 07/16/21 buprenorphine 4 mg-naloxone 1 mg 1 film sublingual BID 03/14/21 07/16/21 sublingual film (Suboxone) naproxen 500 mg tablet 500 mg PO BID 03/14/21 07/16/21 pantoprazole 40 mg tablet,delayed 40 mg PO DAILY 03/14/21 07/16/21 release Previous Rx's Medication Instructions Recorded carvedilol 12.5 mg tablet 12.5 mg PO BID #180 tabs 04/17/21 zolpidem 5 mg tablet 5 mg PO BEDTIME #30 tabs 05/24/21 DISABLED PARKING PERMIT #1 ea 07/16/21 cyclobenzaprine 10 mg tablet 10 mg PO BEDTIME #7 tabs 02/21/22 benzonatate 200 mg capsule 200 mg PO TID PRN cough #30 caps 11/24/23 ciprofloxacin 0.3 %-dexamethasone 4 drp EAR-RIGHT Q12H 7 days #7.5 mL 12/22/23 0.1 % ear drops,suspension Allergies Allergy/AdvReac Type Severity Reaction Status Date / Time gabapentin Allergy Hallucinati Verified 12/22/23 12:18 ng Penicillins Allergy Hives Verified 02/21/22 12:07 Review of Systems <Gordo Mike PA-C - Last Filed: 12/22/23 14:20> Constitutional Constitutional: Denies chills, Denies fatigue, Denies fever(s), Denies frequent falls, Denies lethargy and Denies weakness Eyes Eyes: Denies change in vision, Denies eye discharge, Denies irritation and Denies loss of vision ENT Ears, Nose, Mouth, and Throat: Denies change in voice, Denies dizziness, Denies neck pain, Denies sore throat and Denies throat swelling Comments: Right ear pain, right-sided face pain Cardiovascular Cardiovascular: Denies chest pain, Denies irregular heart rhythm, Denies lightheadedness, Denies palpitations, Denies dyspnea, Denies dyspnea on exertion and Denies orthopnea Respiratory Respiratory: Denies cough, Denies dyspnea, Denies dyspnea on exertion and Denies wheezing Gastrointestinal Gastrointestinal: Denies abdominal pain, Denies change in bowel habits, Denies diarrhea, Denies nausea and Denies vomiting Musculoskeletal Musculoskeletal: Denies neck pain and Denies numbness Integumentary/Breasts Skin/Breast: Denies pruritus, Denies erythema, Denies rash and Denies wounds Neurologic Neurologic: Denies behavioral changes, Denies confusion, Denies dizziness, Denies frequent falls, Denies loss of vision, Denies numbness and Denies weakness Psychiatric Psychiatric: Denies anxiety, Denies behavioral changes, Denies confusion, Denies depression, Denies homicidal ideation and Denies suicidal ideation Endocrine Endocrine: Denies fatigue, Denies flushing and Denies palpitations Hematologic/Lymphatic Hematologic/Lymphatic: Denies easy bruising Allergic/Immunologic Allergic/Immunologic: Denies urticaria, Denies throat swelling and Denies wheezing Patient History <Gordo Mike PA-C - Last Filed: 12/22/23 14:20> Medical History H/O intravenous drug use in remission Vision disorder Eczema Osteoarthritis Chronic back pain (~2004) Hearing loss (~2017) Kidney stones (~2004) Hypertension (~2010) Uterine cancer (~1977) Surgical History Anesthesia History of knee surgery History of hip replacement History of hernia repair History of cholecystectomy History of gastric bypass History of spinal fusion Family History Father Cancer Mother Cirrhosis Grandfather History of heart disease Grandfather Cancer Grandmother Cancer Social History Smoking Status: Never smoker Smoking Status: Never smoker Substance Use Type: does not use Exam <Gordo Mike PA-C - Last Filed: 12/22/23 14:20> Narrative Exam Narrative: Const General:?cooperative, healthy appearing and comfortable [facility] Head:?normal to inspection Ears:?hearing grossly normal bilaterally; bilateral tympani are normal; there is a small white pustule in the right external ear canal; tenderness when pulling on pinna and pushing on tragus; no mastoid tenderness; no facial redness Nose:?external nose normal Face and sinus:?normal facial exam and sinuses nontender Mouth:?oral mucosae normal Throat:?posterior oropharynx normal Eyes General:?appearance normal, both eyes and all related structures Neck Neck:?normal visual inspection and no lymphadenopathy noted Resp Effort & Inspection:?normal respiratory effort Auscultation:?clear to auscultation bilaterally Cardio Rate:?regular rate Rhythm:?regular rhythm Neuro General:?patient alert, patient awake and patient oriented x3 Initial Vital Signs Initial Vital Signs: Vital Signs Temperature 97.8 F 12/22/23 12:19 Pulse Rate 75 12/22/23 12:19 Respiratory Rate 18 12/22/23 12:19 Blood Pressure 148/69 H 12/22/23 12:19 Pulse Oximetry 99 12/22/23 12:19 Oxygen Delivery Method Room Air 12/22/23 12:19 <Caitlyn Worrell DO - Last Filed: 12/22/23 19:08> Initial Vital Signs Initial Vital Signs: Vital Signs Temperature 97.8 F 12/22/23 12:19 Pulse Rate 75 12/22/23 12:19 Respiratory Rate 18 12/22/23 12:19 Blood Pressure 148/69 H 12/22/23 12:19 Pulse Oximetry 99 12/22/23 12:19 Oxygen Delivery Method Room Air 12/22/23 12:19 Course <Gordo Mike PA-C - Last Filed: 12/22/23 14:20> Orders Ordered: ED Orders 12/22/23 12:50 Wound Culture and Gram Stain Stat Vital Signs Vital signs: Vital Signs - 8 hr 12/22/23 12:19 12/22/23 13:16 Temperature 97.8 F Pulse Rate 75 71 Respiratory Rate 18 16 Blood Pressure 148/69 H 121/64 Pulse Oximetry 99 96 Oxygen Delivery Method Room Air Room Air <Caitlyn Worrell DO - Last Filed: 12/22/23 19:08> Orders Ordered: ED Orders 12/22/23 12:50 Wound Culture and Gram Stain Stat Vital Signs Vital signs: Vital Signs - 8 hr 12/22/23 12:19 12/22/23 13:16 Temperature 97.8 F Pulse Rate 75 71 Respiratory Rate 18 16 Blood Pressure 148/69 H 121/64 Pulse Oximetry 99 96 Oxygen Delivery Method Room Air Room Air Medical Decision Making <Gordo Mike PA-C - Last Filed: 12/22/23 14:20> MDM Narrative Medical decision making narrative: 72-year-old female with past medical history osteoarthritis, anxiety, hypertension presents to the ED with 3 days of right-sided ear and face pain. Physical exam is consistent with otitis externa. There was a small pustule in the right ear canal, sample sent to lab for culture. No otitis media on exam. No mastoid tenderness. Prescribed antibiotic eardrops. Recommend follow-up with PCP. ED return precautions discussed with patient. Patient verbalized understanding. Medical records reviewed: Yes Discharge Plan Departure Patient Disposition: Home Clinical Impression: Otitis externa Qualifiers: Otitis externa type: unspecified type Chronicity: acute Laterality: right Qualified Code(s): H60.501 - Unspecified acute noninfective otitis externa, right ear Instructions: DI for Otitis Externa Activity Restrictions/Additional Instructions: You were evaluated in the ED for right ear pain. You have a external ear infection. You have been prescribed antibiotic ear drops. Please follow-up with your PCP as soon as possible. Return to the ED if you have worsening symptoms, fever, chills. Prescriptions: New ciprofloxacin-dexamethasone 0.3-0.1 % drops,suspension 4 drp EAR-RIGHT Q12H 7 Days Qty: 7.5 0RF No Action carvedilol 12.5 mg tablet 12.5 mg PO BID Qty: 180 3RF Rx Instructions: must administer with a meal/food zolpidem 5 mg tablet 5 mg PO BEDTIME Qty: 30 3RF Hold Instructions: Change to 10mg #20 with next fill. benazepril 40 mg tablet 40 mg PO DAILY pantoprazole 40 mg tablet,delayed release (DR/EC) 40 mg PO DAILY naproxen 500 mg tablet 500 mg PO BID buprenorphine-naloxone [Suboxone] 4-1 mg film 1 film sublingual BID (DME) DISABLED PARKING PERMIT See Rx Instructions .ROUTE .MEDSUPPLY Qty: 1 0RF Rx Instructions: I FIND THIS PATIENT TO BE MEDICALLY DISABLED AND QUALIFIED FOR DISABLE PARKING INDICATED, AND SIGNED ON THE ACCOMPANYING [facility] APPLICATION FOR INDIVIDUALS amlodipine [Norvasc] 10 mg Tablet cyclobenzaprine 10 mg tablet 10 mg PO BEDTIME Qty: 7 0RF benzonatate 200 mg capsule 200 mg PO TID PRN (Reason: cough) Qty: 30 0RF Referrals: Adan Gary MD [Primary Care Provider] - Stand Alone Forms: Patient Portal/API ED Sign-out <Caitlyn Worrell DO - Last Filed: 12/22/23 19:08> Cosign ED Attending Jose Attestation: I was immediately available in the department for consultation.
== END 2023-12-22 13:18 | disposition home or self-care (01) ==
PROVIDERS: Emergency Provider Student in an Organized Health Care Education/Training Program; Family Provider Student in an Organized Health Care Education/Training Program; PCP Student in an Organized Health Care Education/Training Program
DX: H60.501 Unspecified acute noninfective otitis externa, right ear (principal)
CPT/HCPCS: 87070; 87077; 87147; 87186; 87205; 99282; 99283

== ENCOUNTER → 2025-01-12 10:54 | Outpatient (CLI) | payer MEDICARE, SELFPAY ==
--- NOTE | 2025-01-12 10:55 | DI.US.S_ITS ---
PROCEDURE: US PELVIC COMPLETE INDICATIONS: ASSESS FOR PRESANCE OF CERVIX TECHNIQUE: Real-time scanning was performed of the pelvic organs, with image documentation. Additional endovaginal scanning was necessary due to incomplete visualization of the adnexal and endometrial structures by transabdominal scanning. COMPARISON: None. FINDINGS: Uterus: Surgically absent. No discernible cervix is identified. Ovaries: Not visualized. Other: Small pelvic free fluid. IMPRESSION: Status post hysterectomy. No discernible cervix is identified. Transvaginal portion of the exam was limited. Ovaries are not visualized. Small pelvic free fluid of uncertain etiology. We strive to produce accurate, complete, and clear reports of imaging services. To assist us in improving patient care, this report was composed using standard report templates and voice recognition software. Therefore, it may contain abnormal punctuation, insertions and/or omissions. Occasional wrong-word or sound-alike substitutions may occur. Though we review the report and make efforts to correct it, we do recommend that the report be read carefully in proper context to recognize any text inaccuracies. Dictated by: Ronny Wall M.D. on 01/12/2025 at 13:45 Approved by: Ronny Wall M.D. on 01/12/2025 at 13:47
== END ==
PROVIDERS: Family Provider Student in an Organized Health Care Education/Training Program; PCP Student in an Organized Health Care Education/Training Program; Referring Provider Student in an Organized Health Care Education/Training Program; Visit Provider Student in an Organized Health Care Education/Training Program
DX: Z90.710 Acquired absence of both cervix and uterus (principal); Z09 Encounter for follow-up examination after completed treatment for conditions other than malignant neoplasm
CPT/HCPCS: 76830; 76856

== ENCOUNTER 2025-11-05 09:05 | Emergency (ER) | payer MEDICARE, SELFPAY ==
[2025-11-05 09:08] VITALS: BP 136/72; PULSE 97; RESP 16; TEMP 36.7; O2SAT 96; BMI 25.0
--- OUTSIDE RECORDS SUMMARY | 2025-11-05 09:08 | XMS_ITS | Encounter Summary ---
Author Organization [facility] Address [address] [place] [address] Care Team Providers Care [employer] Supervisor Name Role Phone Adan Gary MD Primary Care Provider [phone] Reason for Visit * Reason Onset Date Comments Med Refill 03/26/2024 Encounter Details Date Type Department Care Team (Late st Contact Info) Description 03/26/2024 Refill [facility] [address] [phone] Ada Redman, DO [address] [place] [id number] Anxiety Social History Tobacco Use Types Packs/Day Years Used Date Smoking Tobacco: Never Passive Smoke Exposure: Never Smokeless Tobacco: Never Alcohol Use Standard Drinks/Week Comments Never 0 (1 standard drink = 0.6 oz pur e alcohol) PHQ-2 Answer Date Recorded PHQ-2 Score 0 02/11/2024 Comments No Sex and Gender Information Value Date Recorded Sex Assigned at Not on file Legal Sex Female 10:32 AM PDT Gender Identity Not on file Sexual Orientation Not on file documented as of this encounter Miscellaneous Notes * Telephone Encounter - Sarah Reeves MA - 03/27/2024 7:24 AM PDT Patient requesting refill of: Requested Prescriptions Pending Prescriptions Disp Refills hydrOXYzine (ATARAX) 25 mg tablet 15 tablet 1 Last Refilled: 02/12/2024 Discrepancies: None Last Office Visit With Adan Gary MD: 03/08/2024 Next Office Visit with Adan Gary MD: With Dept: Labs: Lab Results Component Value Date CREATININE 1.16 (H) 02/11/2024 K 4.1 02/11/2024 BCR 17.5 02/11/2024 AST 21 02/11/2024 ALT 12 02/11/2024 TSH 1.530 10/21/2021 A1C 5.5 02/11/2024 HGB 13.0 08/06/2023 documented in this encounter Plan of Treatment Not on file documented as of this encounter Visit Diagnoses Diagnosis Anxiety Anxiety state, unspecified documented in this encounter Care Teams [employer] Supervisor Relationship Specialty Start Date End Date Adan Gary MD [address] [place] [id number] PCP - General Family Medicine 10/21/21 documented as of this encounter
--- NOTE | 2025-11-05 09:10 | ED.GENADULT ---
HPI - General Adult General Chief complaint: Back Pain/Injury Stated complaint: Fall 2days ago: SOB, back ache, pain and worsening Time Seen by Provider: 11/05/25 09:09 History of Present Illness HPI narrative: 74-year-old female history osteoarthritis, anxiety, hypertension, presents for evaluation of left-sided back pain after she fell this past Thursday in her home bathroom getting her feet caught underneath the rug and slipped under falling backwards hitting the toilet with the left side of ribs. Patient denies headache, loss of consciousness, dizziness, neck pain, abdominal pain, bowel or bladder incontinence, numbness, tingling, down the legs. Other than what is stated 14 point review of system is negative. Related Data Home Medications ?Medication ?Instructions ?Recorded ?Confirmed amlodipine 10 mg tablet (Norvasc) 03/07/21 07/16/21 benazepril 40 mg tablet 40 mg PO DAILY 03/14/21 07/16/21 buprenorphine 4 mg-naloxone 1 mg 1 film sublingual BID 03/14/21 07/16/21 sublingual film (Suboxone) naproxen 500 mg tablet 500 mg PO BID 03/14/21 07/16/21 pantoprazole 40 mg tablet,delayed 40 mg PO DAILY 03/14/21 07/16/21 release Previous Rx's ?Medication ?Instructions ?Recorded carvedilol 12.5 mg tablet 12.5 mg PO BID #180 tabs 04/17/21 zolpidem 5 mg tablet 5 mg PO BEDTIME #30 tabs 05/24/21 Held on 07/16/21. Instructions: Change to 10mg #20 with next fill. DISABLED PARKING PERMIT #1 ea 07/16/21 cyclobenzaprine 10 mg tablet 10 mg PO BEDTIME #7 tabs 02/21/22 benzonatate 200 mg capsule 200 mg PO TID PRN cough #30 caps 11/24/23 hydrocodone 5 mg-acetaminophen 325 1 tab PO Q4-6H PRN pain #20 tabs 11/05/25 mg tablet Allergies Allergy/AdvReac Type Severity Reaction Status Date / Time gabapentin Allergy Hallucinati Verified 11/05/25 09:17 ng Penicillins Allergy Hives Verified 11/05/25 09:17 Review of Systems Review of Systems ROS Unobtainable: All systems reviewed & are unremarkable except as noted in HPI and below Patient History Medical History H/O intravenous drug use in remission Vision disorder Eczema Osteoarthritis Chronic back pain (~2004) Hearing loss (~2017) Kidney stones (~2004) Hypertension (~2010) Uterine cancer (~1977) Surgical History Anesthesia History of knee surgery History of hip replacement History of hernia repair History of cholecystectomy History of gastric bypass History of spinal fusion Family History Father Cancer Mother Cirrhosis Grandfather History of heart disease Grandfather Cancer Grandmother Cancer Exam Narrative Exam Narrative: GENERAL: [74] year old patient appears stated age. Well-developed patient, in mild distress. HEAD: Atraumatic. Normocephalic. EYES: Pupils equal round and reactive. Extraocular motions intact. No scleral icterus. No injection or drainage. ENT: Nose without bleeding, purulent drainage. Throat without erythema, tonsillar hypertrophy or exudate. Airway patent. NECK: Trachea midline. Non tender CARDIOVASCULAR: Regular rate and rhythm without murmurs, gallops, or rubs. RESPIRATORY: Clear to auscultation. Breath sounds equal bilaterally. No wheezes, rales, or rhonchi. GASTROINTESTINAL: Abdomen soft, non-tender, nondistended. EXTREMITIES: No edema or joint tenderness. BACK: L scapula region and L posterolateral chest wall 4-10 TTP NEURO: AOx3. SKIN: No rash or erythema of visible areas Initial Vital Signs Initial Vital Signs: Vital Signs Temperature 98.0 F 11/05/25 09:08 Pulse Rate 97 H 11/05/25 09:08 Respiratory Rate 16 11/05/25 09:08 Blood Pressure 136/72 11/05/25 09:08 Pulse Oximetry 96 11/05/25 09:08 Oxygen Delivery Method Room Air 11/05/25 09:08 Course Orders Ordered: ED Orders 11/05/25 09:14 XR ribs LT min 3V w CXR1V Stat Vital Signs Vital signs: Vital Signs - 8 hr 11/05/25 09:08 Temperature 98.0 F Pulse Rate 97 H Respiratory Rate 16 Blood Pressure 136/72 Pulse Oximetry 96 Oxygen Delivery Method Room Air Medical Decision Making Imaging Data Chest x-ray: Radiologist's Impression: [address] [address] XRay Report Signed Patient: Laura Horne MR#: [id number] : 1950 Acct:[id number] Age/Sex: 74 / F Date of Service: 11/05/25 Loc: ED Accession Number: [id number] Procedure: XR ribs LT min 3V w CXR1V Ordering Provider: Rene Rivera D.O. PROCEDURE: XR RIBS LT MIN 3V W CXR1V INDICATIONS: fall trauma TECHNIQUE: 2 views of the ribs were acquired, along with a single view chest. COMPARISON: [facility], , XR CHEST 2 VIEWS, 12/01/2023, 10:06. FINDINGS: Surgical changes and devices: Left upper quadrant postoperative changes are seen. Bones and chest wall: Mildly displaced both lateral rib fractures can be seen involving the 5th and 6th ribs with a potential additional fracture involving the 4th rib. Age-appropriate bony degenerative changes are seen. No suspicious bony lesions. Overlying soft tissues appear unremarkable. Lungs and pleura: No pleural effusions or pneumothorax. Lungs appear clear. Mediastinum: The cardiac contours are within normal limits. The aorta demonstrates calcification and tortuosity. IMPRESSION: Left-sided rib fractures without a pneumothorax seen. Dictated by: Devan Monique M.D. on 11/05/2025 at 8:41 Approved by: Devan Monique M.D. on 11/05/2025 at 8:42 [facility] Narrative Medical decision making narrative: All lab work, vital signs, nurse triage note, medication list, previous ER visits, and all imaging studies reviewed. Chest x-ray showed left-sided rib fractures without pneumothorax involving 4th 5th and 6th rib. Differential diagnosis fracture contusion pneumothorax. DC home on [place]. Discharge Plan Departure Patient Disposition: Home Clinical Impression: Closed rib fracture Instructions: DI for Rib Fracture Activity Restrictions/Additional Instructions: Return with new or worsening symptoms. Take medicine as directed for pain control. Keep hydrated. Follow up PCP in 1-2 weeks if no improvement in symptoms. Prescriptions: New hydrocodone-acetaminophen 5-325 mg tablet 1 tab PO Q4-6H PRN (Reason: pain) Qty: 20 0RF No Action carvedilol 12.5 mg tablet 12.5 mg PO BID Qty: 180 3RF Rx Instructions: must administer with a meal/food zolpidem 5 mg tablet 5 mg PO BEDTIME Qty: 30 3RF benazepril 40 mg tablet 40 mg PO DAILY pantoprazole 40 mg tablet,delayed release (DR/EC) 40 mg PO DAILY naproxen 500 mg tablet 500 mg PO BID buprenorphine-naloxone [Suboxone] 4-1 mg film 1 film sublingual BID (DME) DISABLED PARKING PERMIT See Rx Instructions .ROUTE .MEDSUPPLY Qty: 1 0RF Rx Instructions: I FIND THIS PATIENT TO BE MEDICALLY DISABLED AND QUALIFIED FOR DISABLE PARKING INDICATED, AND SIGNED ON THE ACCOMPANYING [facility] APPLICATION FOR INDIVIDUALS amlodipine [Norvasc] 10 mg Tablet cyclobenzaprine 10 mg tablet 10 mg PO BEDTIME Qty: 7 0RF benzonatate 200 mg capsule 200 mg PO TID PRN (Reason: cough) Qty: 30 0RF Referrals: Adan Gary MD [Primary Care Provider, Medical] Stand Alone Forms: Patient Portal/API, Work Release Note
--- NOTE | 2025-11-05 09:14 | DI.RAD.S_ITS ---
PROCEDURE: XR RIBS LT MIN 3V W CXR1V INDICATIONS: fall trauma TECHNIQUE: 2 views of the ribs were acquired, along with a single view chest. COMPARISON: [facility], , XR CHEST 2 VIEWS, 12/01/2023, 10:06. FINDINGS: Surgical changes and devices: Left upper quadrant postoperative changes are seen. Bones and chest wall: Mildly displaced both lateral rib fractures can be seen involving the 5th and 6th ribs with a potential additional fracture involving the 4th rib. Age-appropriate bony degenerative changes are seen. No suspicious bony lesions. Overlying soft tissues appear unremarkable. Lungs and pleura: No pleural effusions or pneumothorax. Lungs appear clear. Mediastinum: The cardiac contours are within normal limits. The aorta demonstrates calcification and tortuosity. IMPRESSION: Left-sided rib fractures without a pneumothorax seen. Dictated by: Devan Monique M.D. on 11/05/2025 at 8:41 Approved by: Devan Monique M.D. on 11/05/2025 at 8:42
[2025-11-05 10:22] VITALS: BP 130/58; PULSE 72; RESP 16; TEMP 36.9; O2SAT 98
== END 2025-11-05 10:23 | disposition home or self-care (01) ==
PROVIDERS: Emergency Provider Family Medicine; Family Provider Student in an Organized Health Care Education/Training Program; PCP Student in an Organized Health Care Education/Training Program
DX: S22.42XA Multiple fractures of ribs, left side, initial encounter for closed fracture (principal); W01.198A Fall on same level from slipping, tripping and stumbling with subsequent striking against other object, initial encounter
CPT/HCPCS: 71101; 99281; 99283